=== PATIENT | male | born 1980 | race Caucasian/White ===

== ENCOUNTER → 2018-03-17 | Outpatient (CLI) | payer OTHER ==
--- NOTE | 2018-03-18 11:33 | MR ---
EXAMINATION TYPE: MR lumbar spine wo con DATE OF EXAM: 03/17/2018 COMPARISON: NONE HISTORY: Low back and lt hip/buttock pain TECHNIQUE: T1 and T2 axial and sagittal images of the lumbar spine are submitted. FINDINGS: There is no abnormal signal seen within the visualized spinal cord or paraspinal soft tissu es. At T12/L1 there is a small focal left paracentral disc protrusion. This results in mild left-sided fo raminal encroachment. At L1-2 there is no disc herniation or canal stenosis. No foraminal encroachment At L2-3 there is no disc herniation or canal stenosis. No foraminal encroachment At L3-4 there is no disc herniation or canal stenosis. No foraminal encroachment At L4-5 there is no disc herniation or canal stenosis. No foraminal encroachment. At L5-S1 there is disc desiccation. There is a broad-based left paracentral and lateral disc herniati on encroaches upon the left exiting nerve root. IMPRESSION: 1. At L5-S1 there is disc desiccation. There is a broad-based left paracentral and lateral disc herni ation encroaches upon the left exiting nerve root. 2. Left paracentral disc small protrusion T12-L1 with mild left-sided foraminal encroachment.
== END | disposition home or self-care (01) ==
LOC: RADMRIMAIN 21:37
PROVIDERS: ATTEND Specialist
DX: M51.25 Other intervertebral disc displacement, thoracolumbar region (principal)
CPT/HCPCS: 72148

== ENCOUNTER 2020-05-03 07:48 | Inpatient (IN) | payer OTHER ==
[2020-05-03] MEDS ORDERED: SODIUM CHLORIDE 0.9% 1,000 ML IV STA (07:56)
[2020-05-03 07:57] VITALS: RESP 18
[2020-05-03 08:13] LABS: Basophils # (A) 0.1 k/uL (0-0.2); Basophils % (A) 1 %; Eosinophils # (A) 0.1 k/uL (0-0.7); Eosinophils % (A) 1 %; HCT 51.2 % (39.0-53.0); Lymphocytes % (A) 20 %; MCH 31.4 pg (25.0-35.0); MCHC 33.2 g/dL (31.0-37.0); MCV 94.6 fL (80.0-100.0); Mean Platelet Volume 7.3; Monocytes # (A) 0.4 k/uL (0-1.0); Monocytes % (A) 4 %; Neutrophils % (A) 73 %; Platelet Count 303 k/uL (150-450); RBC 5.41 m/uL (4.30-5.90); WBC 9.6 k/uL (3.8-10.6)
[2020-05-03 08:25] LABS: INR 1.2 (<1.2); Prothrombin Time 11.9 sec (9.0-12.0)
--- NOTE | 2020-05-03 08:27 | ED ---
General Adult HPI - General Chief complaint: Arrhythmia/Palpitations Stated complaint: Bradycardia Time Seen by Provider: 05/03/20 07:48 Source: patient, EMS, RN notes reviewed, old records reviewed Mode of arrival: EMS Limitations: no limitations - History of Present Illness Initial comments: This is a 39-year-old male who presents emergency Department stating he woke up this morning at 3:00 and was having vomiting and diarrhea. Patient states he wa s also very lightheaded so he called EMS. When EMS arrived the paginator get a rhythm strip and it showed that the patient heart rate 30. Patient was given atropine his heart rate went up into the 70s. Patient states currently he is only mildly nauseous and somewhat thirsty. Patient denies any abdominal pain patient denies any chest pain patient denies any palpitations. Patient states he does use marijuana quite often and occasionally does methamphetamines. Patient denies any recent fever chills states she has chronic cough from smoking. Patient states he has a brother who did of heart disease but he doesn't know exactly what kind of heart disease.. Patient is a poor historian. - Related Data Home Medications Medication Instructions Recorded Confirmed Albuterol Inhaler [Ventolin Hfa 2 puff INHALATION RT-QID PRN 05/03/20 05/03/20 Inhaler] Hydrocodone/Acetaminophen [[place] 1 tab PO ONCE 05/03/20 05/03/20 10-325] Allergies Allergy/AdvReac Type Severity Reaction Status Date / Time No Known Allergies Allergy Verified 05/03/20 08:58 Review of Systems ROS Statement: Those systems with pertinent positive or pertinent negative responses have been documented in the HPI. ROS Other: All systems not noted in ROS Statement are negative. Past Medical History Past Medical History: Asthma History of Any Multi-Drug Resistant Organisms: Unobtainable Past Surgical History: No Surgical Hx Reported Past Psychological History: Bipolar Smoking Status: Current every day smoker Past Alcohol Use History: Occasional Past Drug Use History: Marijuana General Exam - General Exam Comments Initial Comments: GENERAL: Patient is well-developed and well-nourished. Patient is nontoxic and well- hydrated and is in mild distress. ENT: Neck is soft and supple. No significant lymphadenopathy is noted. Oropharynx is clear. Moist mucous membranes. Neck has full range of motion without eliciting any pain. EYES: The sclera were anicteric and conjunctiva were pink and moist. Extraocular movements were intact and pupils were equal round and reactive to light. Eyelids were unremarkable. PULMONARY: Unlabored respirations. Good breath sounds bilaterally. No audible rales rhonchi or wheezing was noted. CARDIOVASCULAR: There is a regular rate and rhythm without any murmurs gallops or rubs. ABDOMEN: Soft and nontender with normal bowel sounds. SKIN: Skin is clear with no lesions or rashes and otherwise unremarkable. NEUROLOGIC: Patient is alert and oriented x3. Cranial nerves II through XII are grossly intact. Motor and sensory are also intact. Normal speech, volume and content. Symmetrical smile. MUSCULOSKELETAL: Normal extremities with adequate strength and full range of motion. LYMPHATICS: No significant lymphadenopathy is noted PSYCHIATRIC: Mildly anxious Limitations: no limitations Course Vital Signs 05/03/20 05/03/20 07:50 09:52 Pulse Rate 103 H 50 L Respiratory 18 18 Rate Blood Pressure 132/82 155/87 O2 Sat by Pulse 100 100 Oximetry Medical Decision Making - Medical Decision Making EKG shows normal sinus rhythm at 90 bpm MN interval 130 QRS is 94 QT interval 32 QTC is 47. Patient's has QT prolongation. I compared this EKG to an old EKG aside from the QT prolongation EKG shows no Chest x-ray showed no acute abnormality. I spoke with Dr. Crowder agreed to admit the patient admitted the patient wrote admitting orders. - Lab Data Result diagrams: 05/03/20 08:03 05/03/20 08:03 Lab Results 05/03/20 05/03/20 05/03/20 Range/Units 08:03 08:03 08:03 WBC 9.6 (3.8-10.6) k/uL RBC 5.41 (4.30-5.90) m/uL Hgb 17.0 (13.0-17.5) gm/dL Hct 51.2 (39.0-53.0) % MCV 94.6 (80.0-100.0) fL MCH 31.4 (25.0-35.0) pg MCHC 33.2 (31.0-37.0) g/dL RDW 13.0 (11.5-15.5) % Plt Count 303 (150-450) k/uL Neutrophils % 73 % Lymphocytes % 20 % Monocytes % 4 % Eosinophils % 1 % Basophils % 1 % Neutrophils # 7.0 (1.3-7.7) k/uL Lymphocytes # 2.0 (1.0-4.8) k/uL Monocytes # 0.4 (0-1.0) k/uL Eosinophils # 0.1 (0-0.7) k/uL Basophils # 0.1 (0-0.2) k/uL PT 11.9 (9.0-12.0) sec INR 1.2 H (<1.2) APTT 23.0 (22.0-30.0) sec Sodium 142 (137-145) mmol/L Potassium 4.1 (3.5-5.1) mmol/L Chloride 108 H (98-107) mmol/L Carbon Dioxide 22 (22-30) mmol/L Anion Gap 12 mmol/L BUN 14 (9-20) mg/dL Creatinine 1.11 (0.66-1.25) mg/dL Est GFR (CKD-EPI)AfAm >90 (>60 ml/min/1.73 sqM) Est GFR (CKD-EPI)NonAf 85 (>60 ml/min/1.73 sqM) Glucose 116 H (74-99) mg/dL Calcium 10.3 H (8.4-10.2) mg/dL Magnesium 2.0 (1.6-2.3) mg/dL Total Bilirubin 1.2 (0.2-1.3) mg/dL AST 22 (17-59) U/L ALT 13 (4-49) U/L Alkaline Phosphatase 86 (38-126) U/L Troponin I (0.000-0.034) ng/mL Total Protein 7.9 (6.3-8.2) g/dL Albumin 4.9 (3.5-5.0) g/dL Urine Opiates Screen (NotDetected) Ur Oxycodone Screen (NotDetected) Urine Methadone Screen (NotDetected) Ur Propoxyphene Screen (NotDetected) Ur Barbiturates Screen (NotDetected) U Tricyclic Antidepress (NotDetected) Ur Phencyclidine Scrn (NotDetected) Ur Amphetamines Screen (NotDetected) U Methamphetamines Scrn (NotDetected) U Benzodiazepines Scrn (NotDetected) Urine Cocaine Screen (NotDetected) U Marijuana (THC) Screen (NotDetected) 05/03/20 05/03/20 Range/Units 08:03 09:21 WBC (3.8-10.6) k/uL RBC (4.30-5.90) m/uL Hgb (13.0-17.5) gm/dL Hct (39.0-53.0) % MCV (80.0-100.0) fL MCH (25.0-35.0) pg MCHC (31.0-37.0) g/dL RDW (11.5-15.5) % Plt Count (150-450) k/uL Neutrophils % % Lymphocytes % % Monocytes % % Eosinophils % % Basophils % % Neutrophils # (1.3-7.7) k/uL Lymphocytes # (1.0-4.8) k/uL Monocytes # (0-1.0) k/uL Eosinophils # (0-0.7) k/uL Basophils # (0-0.2) k/uL PT (9.0-12.0) sec INR (<1.2) APTT (22.0-30.0) sec Sodium (137-145) mmol/L Potassium (3.5-5.1) mmol/L Chloride (98-107) mmol/L Carbon Dioxide (22-30) mmol/L Anion Gap mmol/L BUN (9-20) mg/dL Creatinine (0.66-1.25) mg/dL Est GFR (CKD-EPI)AfAm (>60 ml/min/1.73 sqM) Est GFR (CKD-EPI)NonAf (>60 ml/min/1.73 sqM) Glucose (74-99) mg/dL Calcium (8.4-10.2) mg/dL Magnesium (1.6-2.3) mg/dL Total Bilirubin (0.2-1.3) mg/dL AST (17-59) U/L ALT (4-49) U/L Alkaline Phosphatase (38-126) U/L Troponin I <0.012 (0.000-0.034) ng/mL Total Protein (6.3-8.2) g/dL Albumin (3.5-5.0) g/dL Urine Opiates Screen Detected H (NotDetected) Ur Oxycodone Screen Not Detected (NotDetected) Urine Methadone Screen Not Detected (NotDetected) Ur Propoxyphene Screen Not Detected (NotDetected) Ur Barbiturates Screen Not Detected (NotDetected) U Tricyclic Antidepress Not Detected (NotDetected) Ur Phencyclidine Scrn Not Detected (NotDetected) Ur Amphetamines Screen Not Detected (NotDetected) U Methamphetamines Scrn Detected H (NotDetected) U Benzodiazepines Scrn Not Detected (NotDetected) Urine Cocaine Screen Detected H (NotDetected) U Marijuana (THC) Screen Detected H (NotDetected) Disposition Clinical Impression: Polysubstance abuse, Near syncope, Bradycardia, Vomiting Disposition: ADMITTED IP TO THIS HOSP Referrals: None,Stated [Primary Care Provider] - 1-2 days Time of Disposition: 10:18
[2020-05-03 08:45] LABS: ALT 13 U/L (4-49); AST 22 U/L (17-59); African American GFR (CKD) >90 (>60 ml/min/1.73 sqM); Albumin 4.9 g/dL (3.5-5.0); Alkaline Phosphatase 86 U/L (38-126); Anion Gap 12 mmol/L; Blood Urea Nitrogen 14 mg/dL (9-20); Calcium 10.3 mg/dL (8.4-10.2); Carbon Dioxide 22 mmol/L (22-30); Chloride 108 mmol/L (98-107); Glucose 116 mg/dL (74-99); Non-African American GFR(CKD) 85 (>60 ml/min/1.73 sqM); Potassium 4.1 mmol/L (3.5-5.1); Sodium 142 mmol/L (137-145); Total Bilirubin 1.2 mg/dL (0.2-1.3); Total Protein 7.9 g/dL (6.3-8.2)
[2020-05-03] MEDS ORDERED: LORazepam 2 MG/ML INJ IV STA (08:54)
--- NOTE | 2020-05-03 09:09 | XR ---
EXAMINATION TYPE: XR chest 2V DATE OF EXAM: 05/03/2020 COMPARISON: NONE HISTORY: Chest pain, dyspnea TECHNIQUE: Frontal and lateral views of the chest are obtained. FINDINGS: There is no focal air space opacity, pleural effusion, or pneumothorax seen. The cardiac silhouette size is within normal limits. There are overlying cardiac leads. Suspect artifacts on the lateral exam are also present. The osseous structures are intact. IMPRESSION: No acute cardiopulmonary process.
[2020-05-03 10:08] LABS: Phencyclidine Screen,Urine Not Detected (NotDetected); Urn Cannabinoid Scrn Detected (NotDetected)
[2020-05-03 10:09] LABS: Amphetamine Screen,Urine Not Detected (NotDetected); Barbiturate Screen,Urine Not Detected (NotDetected); Benzodiazepines Screen,Urine Not Detected (NotDetected); Cocaine Screen,Urine Detected (NotDetected); Methadone Screen, Urine Not Detected (NotDetected); Opiate Screen,Urine Detected (NotDetected); Oxycodone Screen, Urine Not Detected (NotDetected); Tricyclic Antidepressant,Urine Not Detected (NotDetected)
[2020-05-03] MEDS ORDERED: NITROGLYCERIN SL TABS 0.4 MG TAB SUBLINGUAL PRN (10:19)
[2020-05-03] MEDS ORDERED: METOCLOPRAMIDE 5 MG/ML 2 ML VIAL IVP STA (12:50)
[2020-05-03] MEDS ORDERED: ACETAMINOPHEN TAB 325 MG TAB PO STA (12:52)
[2020-05-03 12:59] VITALS: BP 103/71; PULSE 60
[2020-05-03] MEDS ORDERED: NICOTINE 21MG/24HR PATCH TRANSDERM STA (16:14)
[2020-05-03] MEDS ORDERED: SODIUM CHLORIDE 0.9% 1,000 ML IV SCH (16:30)
[2020-05-03] MEDS ORDERED: HYDROCORTISONE SUPPOSITORY 25 MG SUPP RECTAL SCH (20:00)
--- NOTE | 2020-05-03 21:35 | P.HPIM ---
History of Present Illness H&P Date: 05/03/20 Chief Complaint: Nausea Patient is a 39-year-old male with a known history of asthma, currently everyday smoker, chronic back pain and history of chronic dislocation/pain of left sternoclavicular joint, polysubstance abuse presents to ER due to complaints of nausea vomiting and diarrhea. Patient felt very lightheaded and called EMS. When the EMS arrived and get a rhythm strip and it showed patient's heart rate at 30. Patient was given atropine and his heart rate went up to 70s. Patient otherwise denied any complaints of chest pain or shortness of breath. No palpitations. Patient states that he does use marijuana and methamphetamines and cocaine. Denied any fever or chills. No headache or dizziness. No cough or sputum production. Patient states that he does have hemorrhoids and is causing pain. Denies any bleeding from the hemorrhoids. No history of prior hemorrhoid surgery. Chest x-ray showed no acute cardiopulmonary process EKG showed sinus bradycardia with heart rate 40 Laboratory data showed calcium 10.3, BUN 49 creatinine 1.1 Troponin x3 - Derangements are not elevated Magnesium 2.0 UDS is positive for opiates, amphetamines, cocaine and marijuana. Review of Systems Constitutional: Patient denies any fever or chills . No generalized weakness or weight loss. Abdomen: Patient does have nausea. no vomiting and diarrhea and abdominal pain. Cardiovascular: Patient denies any chest pain or short of breath no palp itations. Respiratory: patient denied any cough or sputum production. No shortness of breath Neurologic: Patient denied any numbness or tingling headache. Musculoskeletal: Patient denies any complaints of joint swelling or deformity. Skin: Negative Psychiatric: Negative Endocrine: No heat or cold intolerance. No recent weight gain. Genitourinary: No dysuria or hematuria. All other 14 point ROS negative except the above Past Medical History Past Medical History: Asthma, Pneumonia Additional Past Medical History / Comment(s): Chronic dislocation/pain L sternoclavicular joint, chronic back pain. History of Any Multi-Drug Resistant Organisms: None Reported Past Surgical History: No Surgical Hx Reported Past Anesthesia/Blood Transfusion Reactions: Unable to Obtain Additional Past Anesthesia/Blood Transfusion Reaction / Comment(s): Pt states he has never had surgery. Smoking Status: Current every day smoker - Past Family History Father Additional Family Medical History / Comment(s): ETOH abuse Mother History Unknown: Yes Additional Family Medical History / Comment(s): Pt does not know mother' medical history. Medications and Allergies Home Medications Medication Instructions Recorded Confirmed Type Albuterol Inhaler [Ventolin Hfa 2 puff INHALATION RT-QID PRN 05/03/20 05/03/20 History Inhaler] Hydrocodone/Acetaminophen [[place] 1 tab PO ONCE 05/03/20 05/03/20 History 10-325] Allergies Allergy/AdvReac Type Severity Reaction Status Date / Time No Known Allergies Allergy Verified 05/03/20 08:58 Physical Exam Vitals: Vital Signs Pulse Resp BP Pulse Ox 05/03/20 12:58 60 18 103/71 10 L 05/03/20 09:52 50 L 18 155/87 100 05/03/20 07:50 103 H 18 132/82 100 Intake and Output 05/03/20 05/03/20 05/03/20 06:59 14:59 22:59 Other: Weight 72.575 kg PHYSICAL EXAMINATION: Patient is lying in the bed comfortably, no acute distress, awake alert and oriented.. HEENT: Normocephalic. Neck is supple. Pupils reactive. Nostrils clear. Oral cavity is moist. Ears reveal no drainage. Neck reveals no JVD, carotid bruits, or thyromegaly. CHEST EXAMINATION: Trachea is central. Symmetrical expansion. Lung montelongo clear to auscultation and percussion. CARDIAC: Normal S1, S2 with no gallops. No murmurs ABDOMEN: Soft. Bowel sounds normal. No organomegaly. No abdominal bruits. Patient does have external hemorrhoids without bleeding as per rectal exam. Extremities: reveal no edema. No clubbing or cyanosis Neurologically awake, alert, oriented x3 with well-coordinated movements. No focal deficits noted Skin: No rash or skin lesions. Psychiatric: Coperative. Nonsuicidal Musculoskeletal: No joint swelling or deformity. Normal range of motion. Results CBC & Chem 7: 05/03/20 08:03 05/03/20 08:03 Labs: Abnormal Lab Results - Last 24 Hours (Table) 05/03/20 05/03/20 05/03/20 Range/Units 08:03 08:03 09:21 INR 1.2 H (<1.2) Chloride 108 H (98-107) mmol/L Glucose 116 H (74-99) mg/dL Calcium 10.3 H (8.4-10.2) mg/dL Urine Opiates Screen Detected H (NotDetected) U Methamphetamines Scrn Detected H (NotDetected) Urine Cocaine Screen Detected H (NotDetected) U Marijuana (THC) Screen Detected H (NotDetected) Thrombosis Risk Factor Assmnt - DVT/VTE Prophylaxis DVT/VTE Prophylaxis: Pharmacologic Prophylaxis ordered - Choose All That Apply Any of the Below Risk Factors Present?: No Other Risk Factors: No Other congenital or acquired thrombophilia - If yes, enter type in comment: No Thrombosis Risk Factor Assessment Level: Very Low Risk Assessment and Plan Assessment: Sinus bradycardia likely due to cocaine and other polysubstance use. Mild hypercalcemia secondary to dehydration. UDS is positive for opiates, methamphetamines and cocaine and marijuana Polysubstance abuse Asthma stable Ongoing nicotine addiction External hemorrhoids DVT prophylaxis with heparin subcu Plan: Patient will be continued on IV hydration and continue with telemetry monitoring. Serial troponin x3 -. Cardiology was consulted for evaluation due to bradycardia. Patient is currently lying in the bed comfortably. Anuselin law for hemorrhoids. Continue to monitor for any withdrawal symptoms. Further recommendations based on the clinical course.
[2020-05-04] MEDS ORDERED: ASPIRIN 325 MG TAB PO SCH (09:00)
== END 2020-05-03 17:55 | disposition left against medical advice (07) | DRG 310 ==
LOC: EC 07:48 → 3SCARD 10:19
PROVIDERS: ADMIT Internal Medicine; ATTEND Internal Medicine
DX: R00.1 Bradycardia, unspecified (principal); F14.10 Cocaine abuse, uncomplicated; F12.10 Cannabis abuse, uncomplicated; R11.2 Nausea with vomiting, unspecified; G89.29 Other chronic pain; J45.909 Unspecified asthma, uncomplicated; F17.210 Nicotine dependence, cigarettes, uncomplicated; S43.205 Unspecified dislocation of left sternoclavicular joint; K64.4 Residual hemorrhoidal skin tags; E83.52 Hypercalcemia; E86.0 Dehydration; M54.9 Dorsalgia, unspecified; R19.7 Diarrhea, unspecified; R94.31 Abnormal electrocardiogram [ECG] [EKG]; X58.XXXD Exposure to other specified factors, subsequent encounter; Z79.891 Long term (current) use of opiate analgesic; Z87.01 Personal history of pneumonia (recurrent); Z81.1 Family history of alcohol abuse and dependence
CPT/HCPCS: 36415; 71046; 80053; 80306; 83735; 84484; 85025; 85610; 85730; 93005; 96361; 96374; 96375; 99285

== ENCOUNTER 2020-05-04 16:21 | Observation (INO) | payer OTHER ==
[2020-05-04] MEDS ORDERED: IPRATROPIUM-ALBUTEROL 3 ML NEB INHALATION STA (16:51)
[2020-05-04] MEDS ORDERED: SODIUM CHLORIDE 0.9% 1,000 ML IV STA ×2 (16:51→18:27)
--- NOTE | 2020-05-04 16:52 | ED ---
Recheck HPI - General Chief Complaint: Shortness of Breath Stated Complaint: jane,sob Time Seen by Provider: 05/04/20 16:34 Source: patient, RN notes reviewed, old records reviewed Mode of arrival: EMS Limitations: no limitations - History of Present Illness Initial Comments: this is a 39-year-old male DF for evaluation patient is low heart rate seen in the ER signed out AMA returns today for not feeling well. Patient concerned of covert states he feels weak fevers chills numbness and tingling of upper extremities. Weakness today at work. Denies any PCO currently or drug use. No pain did have injured did take some Gem prior to going to work MD Complaint: other (not feeling well) -: days(s) Returns Today for: persistent/worsening pain related to initial visit Symptoms Since Prior Visit: worsening pain Associated Symptoms: chills, shortness of breath, malaise, nausea Treatments Prior to Arrival: Given Pain Meds on - Related Data Home Medications Medication Instructions Recorded Confirmed Albuterol Inhaler [Ventolin Hfa 2 puff INHALATION RT-QID PRN 05/03/20 05/04/20 Inhaler] Allergies Allergy/AdvReac Type Severity Reaction Status Date / Time No Known Allergies Allergy Verified 05/04/20 18:07 Review of Systems ROS Statement: Those systems with pertinent positive or pertinent negative responses have been documented in the HPI. ROS Other: All systems not noted in ROS Statement are negative. Past Medical History Past Medical History: Asthma, Pneumonia Additional Past Medical History / Comment(s): Chronic dislocation/pain L sternoclavicular joint, chronic back pain. History of Any Multi-Drug Resistant Organisms: None Reported Past Surgical History: No Surgical Hx Reported Past Anesthesia/Blood Transfusion Reactions: Unable to Obtain Additional Past Anesthesia/Blood Transfusion Reaction / Comment(s): Pt states he has never had surgery. Past Psychological History: Bipolar Smoking Status: Current every day smoker - Past Family History Father Additional Family Medical History / Comment(s): ETOH abuse Mother History Unknown: Yes Additional Family Medical History / Comment(s): Pt does not know mother' medical history. General Exam Limitations: no limitations General appearance: alert, in no apparent distress Head exam: Present: atraumatic, normocephalic, normal inspection Eye exam: Present: normal appearance, PERRL, EOMI. Absent: scleral icterus, conjunctival injection, periorbital swelling ENT exam: Present: normal exam, mucous membranes moist Neck exam: Present: normal inspection. Absent: tenderness, meningismus, lymphadenopathy Respiratory exam: Present: normal lung sounds bilaterally. Absent: respiratory distress, wheezes, rales, rhonchi, stridor Cardiovascular Exam: Present: normal rhythm, bradycardia, normal heart sounds. Absent: systolic murmur, diastolic murmur, rubs, gallop, clicks GI/Abdominal exam: Present: soft, normal bowel sounds. Absent: distended, tenderness, guarding, rebound, rigid Extremities exam: Present: normal inspection, full ROM, normal capillary refill. Absent: tenderness, pedal edema, joint swelling, calf tenderness Back exam: Present: normal inspection Neurological exam: Present: alert, oriented X3, CN II-XII intact Psychiatric exam: Present: normal affect, normal mood Skin exam: Present: warm, dry, intact, normal color. Absent: rash Course Vital Signs 05/04/20 05/04/20 05/04/20 16:23 17:30 17:38 Temperature 98.2 F Pulse Rate 48 L 44 L 70 Respiratory 18 Rate Blood Pressure 137/101 O2 Sat by Pulse 99 Oximetry 05/04/20 05/04/20 17:51 18:31 Temperature 98.2 F 98.3 F Pulse Rate 42 L 44 L Respiratory 12 22 Rate Blood Pressure 149/100 155/100 O2 Sat by Pulse 100 100 Oximetry - Reevaluation(s) Reevaluation #1: 05/04/20 18:56 medical record is reviewed 05/04/20 18:56 inpatient admission from yesterday is reviewed Reevaluation #2: 05/04/20 18:56 patient informed results and questions answered - Consultations Consultation #1: spoke with SAROJ kay for admission Medical Decision Making - Medical Decision Making 39 male the ER for evaluationin regards to similar symptoms was earlier bradycardia weakness near syncopal occasional pain with cough. - Lab Data Result diagrams: 05/04/20 17:11 05/04/20 17:11 Lab Results 05/04/20 05/04/20 05/04/20 Range/Units 17:11 17:11 17:11 WBC 15.6 H (3.8-10.6) k/uL RBC 4.61 (4.30-5.90) m/uL Hgb 14.4 (13.0-17.5) gm/dL Hct 42.9 (39.0-53.0) % MCV 93.1 (80.0-100.0) fL MCH 31.1 (25.0-35.0) pg MCHC 33.4 (31.0-37.0) g/dL RDW 13.1 (11.5-15.5) % Plt Count 290 (150-450) k/uL Neutrophils % 71 % Lymphocytes % 22 % Monocytes % 5 % Eosinophils % 1 % Basophils % 1 % Neutrophils # 11.1 H (1.3-7.7) k/uL Lymphocytes # 3.4 (1.0-4.8) k/uL Monocytes # 0.8 (0-1.0) k/uL Eosinophils # 0.1 (0-0.7) k/uL Basophils # 0.1 (0-0.2) k/uL PT 12.5 H (9.0-12.0) sec INR 1.2 H (<1.2) APTT 20.3 L (22.0-30.0) sec Sodium 137 (137-145) mmol/L Potassium 3.7 (3.5-5.1) mmol/L Chloride 110 H (98-107) mmol/L Carbon Dioxide 17 L (22-30) mmol/L Anion Gap 10 mmol/L BUN 16 (9-20) mg/dL Creatinine 1.06 (0.66-1.25) mg/dL Est GFR (CKD-EPI)AfAm >90 (>60 ml/min/1.73 sqM) Est GFR (CKD-EPI)NonAf 90 (>60 ml/min/1.73 sqM) Glucose 104 H (74-99) mg/dL Calcium 9.2 (8.4-10.2) mg/dL Magnesium 1.7 (1.6-2.3) mg/dL Total Bilirubin 0.9 (0.2-1.3) mg/dL AST 21 (17-59) U/L ALT 11 (4-49) U/L Alkaline Phosphatase 66 (38-126) U/L Creatine Kinase 182 H (55-170) U/L Troponin I (0.000-0.034) ng/mL NT-Pro-B Natriuret Pep pg/mL Total Protein 6.7 (6.3-8.2) g/dL Albumin 4.1 (3.5-5.0) g/dL 05/04/20 05/04/20 Range/Units 17:11 17:11 WBC (3.8-10.6) k/uL RBC (4.30-5.90) m/uL Hgb (13.0-17.5) gm/dL Hct (39.0-53.0) % MCV (80.0-100.0) fL MCH (25.0-35.0) pg MCHC (31.0-37.0) g/dL RDW (11.5-15.5) % Plt Count (150-450) k/uL Neutrophils % % Lymphocytes % % Monocytes % % Eosinophils % % Basophils % % Neutrophils # (1.3-7.7) k/uL Lymphocytes # (1.0-4.8) k/uL Monocytes # (0-1.0) k/uL Eosinophils # (0-0.7) k/uL Basophils # (0-0.2) k/uL PT (9.0-12.0) sec INR (<1.2) APTT (22.0-30.0) sec Sodium (137-145) mmol/L Potassium (3.5-5.1) mmol/L Chloride (98-107) mmol/L Carbon Dioxide (22-30) mmol/L Anion Gap mmol/L BUN (9-20) mg/dL Creatinine (0.66-1.25) mg/dL Est GFR (CKD-EPI)AfAm (>60 ml/min/1.73 sqM) Est GFR (CKD-EPI)NonAf (>60 ml/min/1.73 sqM) Glucose (74-99) mg/dL Calcium (8.4-10.2) mg/dL Magnesium (1.6-2.3) mg/dL Total Bilirubin (0.2-1.3) mg/dL AST (17-59) U/L ALT (4-49) U/L Alkaline Phosphatase (38-126) U/L Creatine Kinase (55-170) U/L Troponin I <0.012 (0.000-0.034) ng/mL NT-Pro-B Natriuret Pep 101 pg/mL Total Protein (6.3-8.2) g/dL Albumin (3.5-5.0) g/dL - EKG Data -: EKG Interpreted by Me (EKG shows sinus bradycardia rate of 38 DE 128 QRS 100 QTc 356) - Radiology Data Radiology results: report reviewed (chest x-rays negative for acute disease), image reviewed Disposition Clinical Impression: Bradycardia Disposition: ADMITTED IP TO THIS [facility] Condition: Fair Is patient prescribed a controlled substance at d/c from ED?: No Referrals: None,Stated [Primary Care Provider] - 1-2 days
[2020-05-04 17:34] LABS: Basophils # (A) 0.1 k/uL (0-0.2); Basophils % (A) 1 %; Eosinophils # (A) 0.1 k/uL (0-0.7); Eosinophils % (A) 1 %; HCT 42.9 % (39.0-53.0); HGB 14.4 gm/dL (13.0-17.5); Lymphocytes # (A) 3.4 k/uL (1.0-4.8); Lymphocytes % (A) 22 %; MCH 31.1 pg (25.0-35.0); MCHC 33.4 g/dL (31.0-37.0); MCV 93.1 fL (80.0-100.0); Mean Platelet Volume 7.3; Monocytes # (A) 0.8 k/uL (0-1.0); Monocytes % (A) 5 %; Neutrophils # (A) 11.1 k/uL (1.3-7.7); Neutrophils % (A) 71 %; Platelet Count 290 k/uL (150-450); RBC 4.61 m/uL (4.30-5.90); RDW 13.1 % (11.5-15.5); WBC 15.6 k/uL (3.8-10.6)
--- NOTE | 2020-05-04 17:40 | XR ---
EXAMINATION TYPE: XR chest 2V DATE OF EXAM: 05/04/2020 COMPARISON: 05/03/2020 INDICATION: Difficulty in breathing TECHNIQUE: Frontal and lateral views of the chest are obtained. FINDINGS: The heart size is normal. The pulmonary vasculature is normal. The lungs are clear. IMPRESSION: 1. No acute pulmonary process.
[2020-05-04 17:44] LABS: ALT 11 U/L (4-49); AST 21 U/L (17-59); African American GFR (CKD) >90 (>60 ml/min/1.73 sqM); Albumin 4.1 g/dL (3.5-5.0); Alkaline Phosphatase 66 U/L (38-126); Anion Gap 10 mmol/L; Blood Urea Nitrogen 16 mg/dL (9-20); Calcium 9.2 mg/dL (8.4-10.2); Carbon Dioxide 17 mmol/L (22-30); Chloride 110 mmol/L (98-107); Creatine Kinase 182 U/L (55-170); Glucose 104 mg/dL (74-99); Magnesium 1.7 mg/dL (1.6-2.3); Non-African American GFR(CKD) 90 (>60 ml/min/1.73 sqM); Potassium 3.7 mmol/L (3.5-5.1); Sodium 137 mmol/L (137-145); Total Bilirubin 0.9 mg/dL (0.2-1.3); Total Protein 6.7 g/dL (6.3-8.2)
[2020-05-04 18:02] LABS: INR 1.2 (<1.2); Partial Thromboplastin Time 20.3 sec (22.0-30.0); Prothrombin Time 12.5 sec (9.0-12.0)
[2020-05-04] MEDS ORDERED: SODIUM CHLORIDE 0.9% 500 ML 500 ML IV STA (18:27)
[2020-05-04] MEDS ORDERED: LORazepam 2 MG/ML INJ IV STA (18:41)
[2020-05-04] MEDS ORDERED: ASPIRIN 81 MG PO STA (18:53)
[2020-05-04 19:24] LABS: C Reactive Protein <5.0 mg/L (<10.0)
[2020-05-04] MEDS: SODIUM CHLORIDE 0.9% 1,000 ML IV SCH (21:13)
[2020-05-04] MEDS: ONDANSETRON 4 MG/2 ML VIAL IVP PRN (22:18)
[2020-05-05 02:56] LABS: Cholesterol 156 mg/dL (<200); HDL Cholesterol 49 mg/dL (40-60); LDL Cholesterol,Calculated 69 mg/dL (0-99); Triglycerides 188 mg/dL (<150)
[2020-05-05] MEDS: LORazepam 2 MG/ML INJ IV PRN ×2 (03:02→08:56)
[2020-05-05] MEDS: ONDANSETRON 4 MG/2 ML VIAL IVP PRN (03:15)
[2020-05-05] MEDS: SODIUM CHLORIDE 0.9% 1,000 ML IV SCH ×2 (05:58→10:09)
[2020-05-05] MEDS ORDERED: polyethylene glycoL 3350 17 GM POWD.PACK PO STA (08:02)
[2020-05-05] MEDS ORDERED: HYDROCORTISONE SUPPOSITORY 25 MG SUPP RECTAL STA (08:02)
[2020-05-05] MEDS ORDERED: IPRATROPIUM-ALBUTEROL 3 ML NEB INHALATION STA (08:03)
[2020-05-05 08:41] VITALS: BP 125/83; RESP 16; TEMP 98.2
[2020-05-05] MEDS ORDERED: ASPIRIN 325 MG TAB PO SCH (09:00)
--- NOTE | 2020-05-05 09:27 | P.CRDCN ---
History of Present Illness History of present illness: HISTORY OF PRESENTING ILLNESS This is a pleasant 39-year-old male past medical history significant for smoker, chronic nicotine dependence, illicit drug use and bipolar disorder. 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 We have been asked to see in consultation for bradycardia. He presented to the ER with complaints of abdominal pain, constipation, nausea, vomiting and painful hemorrhoids. He states this has been going on for the past couple days intermittently. He has not really eaten much due to the nausea. He initially came to ER 05/03 and left AMA because he was feeling better. However, yesterday after eating sloppy shyam sandwich he again had abdominal pain, nausea and vomiting. EKG on arrival revealed sinus bradycardia with a heart rate of 38. He has had no symptoms of dizziness, syncope, chest pain, palpitations or shortness of breath. He is somewhat edgy and aggressive this morning complaining he is getting no care or medication to help him. Chest xray negative for an acute cardiopulmonary process. Laboratory data reviewed, WBC 15.6, hemoglobin 14.4, platelets 290, INR 1.2, sodium 137, potassium 3.7, creatinine 1.06, magnesium 1.7, cardiac enzymes negative 3, TSH 1.49, LDL 69, HDL 49 and urine drug screen from May 03 reveals positive for opiates, methamphetamine, cocaine and marijuana. REVIEW OF SYSTEMS At the time of my exam: CONSTITUTIONAL: Denies fever or chills. CARDIOVASCULAR: Denies chest pain, shortness of breath, orthopnea, PND or palpitations. RESPIRATORY: Denies cough. GASTROINTESTINAL: Complains of abdominal pain, constipation, nausea and vomiting. Denies diarrhea. MUSCULOSKELETAL: Denies myalgias. NEUROLOGIC: Denies numbness, tingling or weakness. ENDOCRINE: Denies fatigue, weight change, polydipsia or polyurina. GENITOURINARY: Denies burning, hematuria or urgency with micturation. HEMATOLOGIC: Denies history of anemia or bleeding. PHYSICAL EXAMINATION Blood pressure 125/83 heart rate 52 afebrile and maintaining oxygen saturation on room air. CONSTITUTIONAL: No apparent distress. HEENT: Head is normocephalic. Pupils are equal, round. Sclerae anicteric. Mucous membranes of the mouth are moist. No JVD. No carotid bruit. CHEST EXAMINATION: Expiratory wheezes bilaterally. No chest wall tenderness is noted on palpation or with deep breathing. HEART EXAMINATION: Regular rate and rhythm. S1, S2 heard. No murmurs, gallops or rub. ABDOMEN: Soft, nontender. Positive bowel sounds. EXTREMITIES: 2+ peripheral pulses, no lower extremity edema and no calf tenderness. NEUROLOGIC EXAMINATION: Patient is awake, alert and oriented x3. ASSESSMENT Sinus bradycardia Abdominal pain, nausea, vomiting and constipation Leukocytosis Asthma Chronic nicotine dependence Poly-substance illicit drug abuse PLAN Concerning the sinus bradycardia, he is asymptomatic. There is no electrolyte abnormalities and he is euthyroid. Possibly related to persistent abdominal issues. We recommend he gets up and ambulates and we will watch on telemetry for chronotropic response. Ongoing medical management and evaluation of abdominal pain, nausea and constipation. We will give one time dose of miralax, breathing treatment and annusol. Thank you kindly for this consultation. Nurse Practitioner note has been reviewed, I agree with a documented findings and plan of care. Patient was seen and examined. Past Medical History Past Medical History: Asthma, Pneumonia Additional Past Medical History / Comment(s): Chronic dislocation/pain L sternoclavicular joint, chronic back pain. History of Any Multi-Drug Resistant Organisms: None Reported Past Surgical History: No Surgical Hx Reported Past Anesthesia/Blood Transfusion Reactions: Unable to Obtain Additional Past Anesthesia/Blood Transfusion Reaction / Comment(s): Pt states he has never had surgery. Past Psychological History: Bipolar Additional Psychological History / Comment(s): Pt resides with his mother Smoking Status: Current every day smoker Past Alcohol Use History: Occasional Additional Past Alcohol Use History / Comment(s): Pt started smoking in 1996 and is a ppd smoker. Past Drug Use History: Cocaine, Marijuana, Methamphetamine Additional Drug Use History / Comment(s): Pt states he uses marijuana, meth and cocaine occasionally. 05/03/20 UDS + for opiates, meth, cocain, marijuana - Past Family History Father Additional Family Medical History / Comment(s): ETOH abuse Mother History Unknown: Yes Additional Family Medical History / Comment(s): Pt does not know mother' medical history. Medications and Allergies Home Medications Medication Instructions Recorded Confirmed Type Albuterol Inhaler [Ventolin Hfa 2 puff INHALATION RT-QID PRN 05/03/20 05/04/20 History Inhaler] Allergies Allergy/AdvReac Type Severity Reaction Status Date / Time No Known Allergies Allergy Verified 05/04/20 18:07 Physical Exam Vitals: Vital Signs Temp Pulse Pulse Resp BP BP Pulse Ox 05/05/20 07:37 98.2 F 52 L 16 125/83 98 05/05/20 03:32 66 05/05/20 03:00 98.1 F 40 L 18 164/88 97 05/04/20 20:43 98.3 F 76 18 108/63 97 05/04/20 20:01 98.3 F 80 19 125/58 100 05/04/20 19:20 74 19 138/85 100 05/04/20 19:00 98.2 F 44 L 18 144/86 100 05/04/20 18:31 98.3 F 44 L 22 155/100 100 05/04/20 17:51 98.2 F 42 L 12 149/100 100 05/04/20 17:38 70 05/04/20 17:30 44 L 05/04/20 16:23 98.2 F 48 L 18 137/101 99 Intake and Output 05/04/20 05/05/20 05/05/20 22:59 06:59 14:59 Other: Voiding Method Toilet Toilet # Voids 1 1 Weight 73.482 kg Results 05/04/20 17:11 05/04/20 17:11 Cardiac Enzymes 05/04/20 05/04/20 05/04/20 Range/Units 17:11 17:11 19:38 AST 21 (17-59) U/L Troponin I <0.012 <0.012 (0.000-0.034) ng/mL 05/04/20 Range/Units 23:10 AST (17-59) U/L Troponin I <0.012 (0.000-0.034) ng/mL Coagulation 05/04/20 Range/Units 17:11 PT 12.5 H (9.0-12.0) sec APTT 20.3 L (22.0-30.0) sec Lipids 05/04/20 Range/Units 17:11 Triglycerides 188 H (<150) mg/dL Cholesterol 156 (<200) mg/dL HDL Cholesterol 49 (40-60) mg/dL CBC 05/04/20 Range/Units 17:11 WBC 15.6 H (3.8-10.6) k/uL RBC 4.61 (4.30-5.90) m/uL Hgb 14.4 (13.0-17.5) gm/dL Hct 42.9 (39.0-53.0) % Plt Count 290 (150-450) k/uL Comprehensive Metabolic Panel 05/04/20 Range/Units 17:11 Sodium 137 (137-145) mmol/L Potassium 3.7 (3.5-5.1) mmol/L Chloride 110 H (98-107) mmol/L Carbon Dioxide 17 L (22-30) mmol/L BUN 16 (9-20) mg/dL Creatinine 1.06 (0.66-1.25) mg/dL Glucose 104 H (74-99) mg/dL Calcium 9.2 (8.4-10.2) mg/dL AST 21 (17-59) U/L ALT 11 (4-49) U/L Alkaline Phosphatase 66 (38-126) U/L Total Protein 6.7 (6.3-8.2) g/dL Albumin 4.1 (3.5-5.0) g/dL Current Medications Generic Name Dose Route Start Last Admin Trade Name Freq PRN Reason Stop Dose Admin Aspirin 325 mg 05/05/20 09:00 05/05/20 08:57 Aspirin 325 Mg Tab PO 325 mg DAILY BERNARD Administration Sodium Chloride 1,000 mls @ 100 mls/hr 05/04/20 19:00 05/05/20 05:58 Saline 0.9% IV Not Given .Q10H BERNARD Lorazepam 1 mg 05/04/20 18:41 05/05/20 08:56 Lorazepam 2 Mg/Ml Inj IV 1 mg Q4HR PRN Administration Anxiety Ondansetron HCl 4 mg 05/04/20 22:12 05/05/20 03:15 Ondansetron 4 Mg/2 Ml Vial IVP 4 mg Q6HR PRN Administration Nausea And Vomiting Intake and Output 05/04/20 05/05/20 05/05/20 22:59 06:59 14:59 Other: Voiding Method Toilet Toilet # Voids 1 1 Weight 73.482 kg 05/04/20 17:11 05/04/20 17:11
[2020-05-05 10:12] VITALS: PULSE 67
--- NOTE | 2020-05-05 12:21 | ECHOF ---
Referral Reason:jane MEASUREMENTS -------- HEIGHT: 170.2 cm WEIGHT: 73.5 kg BP: 164/88 RVIDd: 3.1 cm (< 3.3) IVSd: 1.0 cm (0.6 - 1.1) LVIDd: 4.9 cm (3.9 - 5.3) LVPWd: 1.2 cm (0.6 - 1.1) IVSs: 1.4 cm LVIDs: 3.1 cm LVPWs: 1.8 cm LAESV Index (A-L): 19.99 ml/m Ao Diam: 2.3 cm (2.0 - 3.7) AV Cusp: 1.6 cm (1.5 - 2.6) MV EXCURSION: 22.955 mm (> 18.000) MV EF SLOPE: 154 mm/s (70 - 150) EPSS: 0.6 cm MV E José Miguel: 0.71 m/s MV DecT: 164 ms MV A José Miguel: 1.05 m/s MV E/A Ratio: 0.68 FINDINGS -------- Resting bradycardia (HR<60bpm). This was a technically adequate study. The left ventricular size is normal. Left ventricular wall thickness is normal. Overall left vent ricular systolic function is normal with, an EF between 55 - 60 %. The diastolic filling pattern is normal for the age of the patient {E/E'}. The right ventricle is normal in size. Normal LA size by volume 22+/-6 ml/m2. The right atrial size is normal. Interatrial and interventricular septum intact. The aortic valve is trileaflet and appears structurally normal. There is mild aortic valve sclerosi s. There is no evidence of aortic regurgitation. There is no evidence of aortic stenosis. Mild mitral regurgitation is present. Trace tricuspid regurgitation present. There is no evidence of pulmonary hypertension. The right ventricular systolic pressure, as measured by Doppler, is {RVSP}. There is no pulmonic regurgitation present. The aortic root size is normal. IVC Not well visulized. There is no pericardial effusion. CONCLUSIONS -------- 1. The left ventricular size is normal. 2. Left ventricular wall thickness is normal. 3. Overall left ventricular systolic function is normal with, an EF between 55 - 60 %. 4. There is mild aortic valve sclerosis. 5. Mild mitral regurgitation is present. 6. Trace tricuspid regurgitation present. RAILROAD OPERATOR: Lily Gilmore RDCS
--- NOTE | 2020-05-06 21:43 | HP ---
HISTORY AND PHYSICAL COMBINED HISTORY AND PHYSICAL AND DISCHARGE SUMMARY: CHIEF COMPLAINT: Bradycardia. HISTORY OF PRESENT ILLNESS: This 39-year-old gentleman was admitted with bradycardia, abdominal pain, nausea, vomiting. He was treated symptomatically. The patient left the hospital AGAINST MEDICAL ADVICE before being seen. Please refer to the multiple progress notes ER notes, staff notes and consultation notes for further details. FINAL DIAGNOSES: 1. Sinus bradycardia. 2. Abdominal pain, nausea, vomiting, constipation of undetermined etiology. MMODL / IJN: [id number] /
== END 2020-05-05 14:29 | disposition left against medical advice (07) ==
LOC: EC 16:21 → 3NCARDOBS 18:54
PROVIDERS: ADMIT Hospitalist; ATTEND Hospitalist
DX: R00.1 Bradycardia, unspecified (principal); D72.829 Elevated white blood cell count, unspecified; F12.90 Cannabis use, unspecified, uncomplicated; R10.9 Unspecified abdominal pain; R11.2 Nausea with vomiting, unspecified; K59.00 Constipation, unspecified; K64.9 Unspecified hemorrhoids; J45.909 Unspecified asthma, uncomplicated; F17.200 Nicotine dependence, unspecified, uncomplicated; F31.9 Bipolar disorder, unspecified
CPT/HCPCS: 93005 ×2; 96375; 96376; 96361; 96374; 99285; 36415; 94640 ×2; 93306; 83880; 80061; 80053; 84443; 82550; 83735; 84484; 85025; 85610; 85730; 86140; 71046; G0378 ×2; J2060 ×2; J2405 ×2

== ENCOUNTER 2020-12-23 14:39 | Inpatient (IN) | payer OTHER ==
[2020-12-23] MEDS ORDERED: ACETAMINOPHEN TAB 500 MG TAB PO STA (14:50)
--- NOTE | 2020-12-23 14:54 | ED ---
General Adult HPI - General Stated complaint: N&V Time Seen by Provider: 12/23/20 14:41 - History of Present Illness Initial comments: Dictation was produced using [employer] dictation software. please excuse any grammatical, word or spelling errors. Chief Complaint: Patient is a 40-year-old male presents to the emergency department for constitutional symptoms History of Present Illness: Patient is a 32-year-old male who presents emergency department for constitutional symptoms. Patient states he woke up having symptoms of chills. Patient states that his grandfather had similar symptoms. States that he has some mild abdominal pain, diarrhea and nausea. Denies any shortness of breath. No burning on urination. No rash. Patient was recently admitted to [facility] where he was supposed to get a pacemaker for bradycardia but decided to leave AGAINST MEDICAL ADVICE. The ROS documented in this emergency department record has been reviewed and confirmed by me. Those systems with pertinent positive or negative responses have been documented in the HPI. All other systems are other negative and/or noncontributory. PHYSICAL EXAM: General Impression: Alert and oriented x3, not in acute distress HEENT: Normocephalic atraumatic, extra-ocular movements intact, pupils equal and reactive to light bilaterally, mucous membranes moist. Cardiovascular: Heart regular rate and rhythm Chest: Able to complete full sentences, no retractions, no tachypnea Abdomen: abdomen soft, non-tender, non-distended, no organomegaly Musculoskeletal: Pulses present and equal in all extremities, no peripheral edema Motor: no focal deficits noted Neurological: CN II-XII grossly intact, no focal motor or sensory deficits noted Skin: Intact with no visualized rashes Psych: Normal affect and mood ED course: 40 yo male presents for constitutional symptoms 1 day. Vital signs upon arrival shows heart rate of 39, worse vital signs within acceptable limits. Patient hooked up to the monitor and continues to have bradycardic rhythm is in the 30s. She is primary complaints constitutional symptoms. CBC, coag panel is unremarkable. Patient's magnesium 1.5. Elevated and chest x-ray are unremarkable. Patient reevaluated at bedside. Found to be stable medical condition. Patient is agreeable to admission for bradycardia. He states that instead of signing out AGAINST MEDICAL ADVICE he wants to follow through with the pacemaker placement. EKG interpretation: Ventricular rate 47, sinus bradycardia,. 122, QRS 92, QTc 438. No NE prolongation, no QTC prolongation, no ST or T-wave changes noted. EKG compared to 05/04/2020 showing no changes. Overall, this EKG is unremarkable - Related Data Home Medications Medication Instructions Recorded Confirmed No Known Home Medications 12/23/20 12/23/20 Allergies Allergy/AdvReac Type Severity Reaction Status Date / Time No Known Allergies Allergy Verified 12/23/20 16:08 Review of Systems ROS Statement: Those systems with pertinent positive or pertinent negative responses have been documented in the HPI. ROS Other: All systems not noted in ROS Statement are negative. Past Medical History Past Medical History: Asthma, Pneumonia Additional Past Medical History / Comment(s): Chronic dislocation/pain L sternoclavicular joint, chronic back pain. History of Any Multi-Drug Resistant Organisms: None Reported Past Surgical History: No Surgical Hx Reported Past Anesthesia/Blood Transfusion Reactions: Unable to Obtain Additional Past Anesthesia/Blood Transfusion Reaction / Comment(s): Pt states he has never had surgery. Past Psychological History: Bipolar Additional Psychological History / Comment(s): Pt resides with his mother Smoking Status: Current every day smoker Past Alcohol Use History: Occasional Additional Past Alcohol Use History / Comment(s): Pt started smoking in 1996 and is a ppd smoker. Past Drug Use History: Cocaine, Marijuana, Methamphetamine Additional Drug Use History / Comment(s): Pt states he uses marijuana, meth and cocaine occasionally. 05/03/20 UDS + for opiates, meth, cocain, marijuana - Past Family History Father Additional Family Medical History / Comment(s): ETOH abuse Mother History Unknown: Yes Additional Family Medical History / Comment(s): Pt does not know mother' medical history. Course Vital Signs 12/23/20 12/23/20 12/23/20 14:51 14:55 15:04 Temperature 97.9 F Pulse Rate 39 L 39 L Pulse Rate [ 36 L Visual Design Lead ] Respiratory 20 18 Rate Blood Pressure 170/122 146/65 O2 Sat by Pulse 99 100 Oximetry Medical Decision Making - Lab Data Result diagrams: 12/23/20 15:24 12/23/20 15:24 Lab Results 12/23/20 12/23/20 12/23/20 Range/Units 15:24 15:24 15:24 WBC 11.6 H (3.8-10.6) k/uL RBC 4.78 (4.30-5.90) m/uL Hgb 15.7 (13.0-17.5) gm/dL Hct 44.5 (39.0-53.0) % MCV 93.1 (80.0-100.0) fL MCH 32.7 (25.0-35.0) pg MCHC 35.2 (31.0-37.0) g/dL RDW 13.4 (11.5-15.5) % Plt Count 290 (150-450) k/uL MPV 7.6 Neutrophils % 80 % Lymphocytes % 15 % Monocytes % 3 % Eosinophils % 0 % Basophils % 0 % Neutrophils # 9.3 H (1.3-7.7) k/uL Lymphocytes # 1.8 (1.0-4.8) k/uL Monocytes # 0.4 (0-1.0) k/uL Eosinophils # 0.1 (0-0.7) k/uL Basophils # 0.0 (0-0.2) k/uL PT 11.7 (9.0-12.0) sec INR 1.1 (<1.2) APTT 22.1 (22.0-30.0) sec Sodium 142 (137-145) mmol/L Potassium 4.1 (3.5-5.1) mmol/L Chloride 111 H (98-107) mmol/L Carbon Dioxide 18 L (22-30) mmol/L Anion Gap 13 mmol/L BUN 22 H (9-20) mg/dL Creatinine 0.76 (0.66-1.25) mg/dL Est GFR (CKD-EPI)AfAm >90 (>60 ml/min/1.73 sqM) Est GFR (CKD-EPI)NonAf >90 (>60 ml/min/1.73 sqM) Glucose 151 H (74-99) mg/dL Calcium 10.7 H (8.4-10.2) mg/dL Ionized Calcium Lashanda 5.3 (4.5-5.3) mg/dL Magnesium 1.5 L (1.6-2.3) mg/dL Troponin I (0.000-0.034) ng/mL Coronavirus (PCR) (Not Detectd) 12/23/20 12/23/20 Range/Units 15:24 15:24 WBC (3.8-10.6) k/uL RBC (4.30-5.90) m/uL Hgb (13.0-17.5) gm/dL Hct (39.0-53.0) % MCV (80.0-100.0) fL MCH (25.0-35.0) pg MCHC (31.0-37.0) g/dL RDW (11.5-15.5) % Plt Count (150-450) k/uL MPV Neutrophils % % Lymphocytes % % Monocytes % % Eosinophils % % Basophils % % Neutrophils # (1.3-7.7) k/uL Lymphocytes # (1.0-4.8) k/uL Monocytes # (0-1.0) k/uL Eosinophils # (0-0.7) k/uL Basophils # (0-0.2) k/uL PT (9.0-12.0) sec INR (<1.2) APTT (22.0-30.0) sec Sodium (137-145) mmol/L Potassium (3.5-5.1) mmol/L Chloride (98-107) mmol/L Carbon Dioxide (22-30) mmol/L Anion Gap mmol/L BUN (9-20) mg/dL Creatinine (0.66-1.25) mg/dL Est GFR (CKD-EPI)AfAm (>60 ml/min/1.73 sqM) Est GFR (CKD-EPI)NonAf (>60 ml/min/1.73 sqM) Glucose (74-99) mg/dL Calcium (8.4-10.2) mg/dL Ionized Calcium Lashanda (4.5-5.3) mg/dL Magnesium (1.6-2.3) mg/dL Troponin I <0.012 (0.000-0.034) ng/mL Coronavirus (PCR) Not Detected (Not Detectd) Critical Care Time Critical Care Time: Yes Total Critical Care Time: 33 Disposition Clinical Impression: Bradycardia Disposition: ADMITTED IP TO THIS [facility] Condition: Fair Referrals: None,Stated [Primary Care Provider] - 1-2 days
[2020-12-23 15:39] LABS: Basophils % (A) 0 %; Eosinophils # (A) 0.1 k/uL (0-0.7); Eosinophils % (A) 0 %; HCT 44.5 % (39.0-53.0); HGB 15.7 gm/dL (13.0-17.5); Lymphocytes # (A) 1.8 k/uL (1.0-4.8); Lymphocytes % (A) 15 %; MCH 32.7 pg (25.0-35.0); MCHC 35.2 g/dL (31.0-37.0); MCV 93.1 fL (80.0-100.0); Mean Platelet Volume 7.6; Monocytes # (A) 0.4 k/uL (0-1.0); Monocytes % (A) 3 %; Neutrophils # (A) 9.3 k/uL (1.3-7.7); Neutrophils % (A) 80 %; Platelet Count 290 k/uL (150-450); RBC 4.78 m/uL (4.30-5.90); RDW 13.4 % (11.5-15.5); WBC 11.6 k/uL (3.8-10.6)
--- NOTE | 2020-12-23 15:39 | XR ---
EXAMINATION TYPE: XR chest 1V portable DATE OF EXAM: 12/23/2020 COMPARISON: Chest x-ray 05/04/2020 HISTORY: Chills TECHNIQUE: Single frontal view of the chest is obtained. FINDINGS: There is no focal air space opacity, pleural effusion, or pneumothorax seen. The cardiac silhouette size is within normal limits. There are overlying leads. The osseous structures are intac t. IMPRESSION: No acute process.
[2020-12-23 15:48] LABS: Ionized Calcium 5.3 mg/dL (4.5-5.3)
[2020-12-23 15:56] LABS: African American GFR (CKD) >90 (>60 ml/min/1.73 sqM); Anion Gap 13 mmol/L; Blood Urea Nitrogen 22 mg/dL (9-20); Calcium 10.7 mg/dL (8.4-10.2); Carbon Dioxide 18 mmol/L (22-30); Chloride 111 mmol/L (98-107); Glucose 151 mg/dL (74-99); Magnesium 1.5 mg/dL (1.6-2.3); Non-African American GFR(CKD) >90 (>60 ml/min/1.73 sqM); Potassium 4.1 mmol/L (3.5-5.1); Sodium 142 mmol/L (137-145)
[2020-12-23] MEDS ORDERED: ONDANSETRON ODT 4 MG TAB PO STA (15:56)
[2020-12-23 16:01] LABS: INR 1.1 (<1.2); Partial Thromboplastin Time 22.1 sec (22.0-30.0); Prothrombin Time 11.7 sec (9.0-12.0)
[2020-12-23] MEDS ORDERED: NALOXONE 0.4 MG/ML 1 ML VIAL IV PRN (16:24)
[2020-12-23] MEDS: MAGNESIUM SULFATE-D5W PMX 1 GM in DEXTROSE/WATER 1 100ML.BAG IVPB SCH ×2 (16:34→17:47)
[2020-12-23] MEDS ORDERED: METOCLOPRAMIDE 5 MG/ML 2 ML VIAL IVP STA (17:18)
[2020-12-23] MEDS: SODIUM CHLORIDE 0.9% 1,000 ML IV SCH ×2 (17:21→23:10)
[2020-12-23] MEDS ORDERED: LORazepam 2 MG/ML INJ IV STA (20:34)
[2020-12-23] MEDS ORDERED: IBUPROFEN 200 MG TAB PO PRN (20:36)
[2020-12-23] MEDS ORDERED: ONDANSETRON 4 MG/2 ML VIAL IVP PRN (20:36)
[2020-12-23] MEDS ORDERED: TEMAZEPAM 15 MG CAP PO PRN (20:40)
[2020-12-23 20:43] VITALS: RESP 16
[2020-12-23] MEDS ORDERED: PANTOPRAZOLE 40 MG/10 ML VIAL IVP SCH (21:00)
[2020-12-23] MEDS ORDERED: LORazepam 2 MG/ML INJ IV PRN (22:05)
[2020-12-23] MEDS ORDERED: HYDROcodone/APAP 5-325MG 1 EACH TAB PO PRN (22:05)
[2020-12-23] MEDS ORDERED: Potassium Replacement Protocol 1 EACH MISC MISCELLANE PRN (22:05)
[2020-12-23] MEDS ORDERED: LORazepam 1 MG TAB PO PRN (22:05)
[2020-12-23] MEDS ORDERED: Magnesium Replacement Protocol 1 EACH MISC MISCELLANE PRN (22:05)
--- NOTE | 2020-12-23 22:56 | P.HPIM ---
History of Present Illness H&P Date: 12/23/20 Chief Complaint: Symptomatic bradycardia 40-year-old male with significant history Patient comes in with a diagnosis of symptomatic bradycardia he's been suffering this for a few months now. With sporadic episodes of getting dizzy lightheaded eating hot flashes and nauseated it's precipitated by nonspecific factor can happen during activity or rest. He doesn't recall any recent upper respiratory infection. He reports that his twin brother of heart disease he thinks it's related to rhythm abnormality is not sure of the type. He was evaluated by cardiology as an outpatient and recommendations were made to have a pacemaker inserted. He has recently left AGAINST MEDICAL ADVICE from [facility] while waiting to get evaluated for pacemaker insertion is not clearing his report at one point she reports that it was in the past few days and other times he mentioned to the nurse that it might have happened about a month ago patient is not clearing his reports. He is currently feeling fine denies any complaints of chest pain or trouble breathing denies any dizziness or lightheadedness is laying comfortable in bed denies any fevers or chills nausea or vomiting denies any GI bleeding Workup in the ED EKG showed sinus bradycardia, magnesium is low at 1.5 lactic acidosis of 3 initial troponins were negative Review of Systems Pertinent positives as noted in HPI. All other systems were reviewed and are negative Past Medical History Past Medical History: Asthma, Pneumonia Additional Past Medical History / Comment(s): Chronic dislocation/pain L sternoclavicular joint, chronic back pain. History of Any Multi-Drug Resistant Organisms: None Reported Past Surgical History: No Surgical Hx Reported Past Anesthesia/Blood Transfusion Reactions: Unable to Obtain Additional Past Anesthesia/Blood Transfusion Reaction / Comment(s): Pt states he has never had surgery. Smoking Status: Current every day smoker - Past Family History Father Additional Family Medical History / Comment(s): ETOH abuse Mother History Unknown: Yes Additional Family Medical History / Comment(s): Pt does not know mother' medical history. Medications and Allergies Home Medications Medication Instructions Recorded Confirmed Type No Known Home Medications 12/23/20 12/23/20 History Allergies Allergy/AdvReac Type Severity Reaction Status Date / Time No Known Allergies Allergy Verified 12/23/20 16:08 Physical Exam Vitals: Vital Signs Temp Pulse Pulse Resp BP Pulse Ox 12/23/20 19:45 44 L 24 131/76 100 06/25/21 19:27 48 L 20 95 12/23/20 19:00 62 16 142/72 98 12/23/20 17:00 97.8 F 49 L 20 143/92 99 12/23/20 16:30 98.2 F 37 L 18 154/82 99 12/23/20 16:00 98.5 F 34 L 18 140/71 99 12/23/20 15:30 36 L 18 131/71 99 12/23/20 15:04 36 L 12/23/20 14:55 39 L 18 146/65 100 12/23/20 14:51 97.9 F 39 L 20 170/122 99 Intake and Output 12/23/20 12/23/20 12/23/20 06:59 14:59 22:59 Other: Weight 63.503 kg 63.503 kg Constitutional: No acute distress, conversant, pleasant Eyes: Anicteric sclerae, moist conjunctiva, Pupils equal round reactive to light ENMT: NC/AT Oropharynx clear, no erythema, or exudates Neck: Supple, FROM, no masses, or JVD No carotid bruits No thyromegaly Lungs: Clear to auscultation Clear to percussion Normal respiratory effort, no accessory muscle use Cardiovascular: Heart regular in rate and rhythm, No murmurs, gallops, or rubs No peripheral edema Abdominal: Soft Nontender, no guarding, rebound or rigidity Abdomen moving with respiration Normoactive bowel sounds No hepatomegaly, No splenomegaly No palpable mass No abdominal wall hernia noted Skin: Normal temperature, tone, texture, turgor No induration No subcutaneous nodules No rash, lesions No ulcers Multiple tattoos Extremities: No digital cyanosis No clubbing Pedal pulses intact and symmetrical Radial pulses intact and symmetrical No calf tenderness Psychiatric: Alert and oriented to person, place and time Appropriate affect fair judgement Neuro Muscles Strength 5/5 in all 4 extremities Sensation to light touch grossly present throughout Cranial nerves II-XII grossly intact No focal sensory deficits Lymphatics: no palpable cervical or supraclavicular , or inguinal lymph nodes Results CBC & Chem 7: 12/23/20 15:24 12/23/20 15:24 Labs: Abnormal Lab Results - Last 24 Hours (Table) 12/23/20 12/23/20 12/23/20 Range/Units 15:24 15:24 15:24 WBC 11.6 H (3.8-10.6) k/uL Neutrophils # 9.3 H (1.3-7.7) k/uL Chloride 111 H (98-107) mmol/L Carbon Dioxide 18 L (22-30) mmol/L BUN 22 H (9-20) mg/dL Glucose 151 H (74-99) mg/dL Plasma Lactic Acid Alexei 2.2 H* (0.7-2.0) mmol/L Calcium 10.7 H (8.4-10.2) mg/dL Magnesium 1.5 L (1.6-2.3) mg/dL 12/23/20 Range/Units 19:27 WBC (3.8-10.6) k/uL Neutrophils # (1.3-7.7) k/uL Chloride (98-107) mmol/L Carbon Dioxide (22-30) mmol/L BUN (9-20) mg/dL Glucose (74-99) mg/dL Plasma Lactic Acid Alexei 3.0 H* (0.7-2.0) mmol/L Calcium (8.4-10.2) mg/dL Magnesium (1.6-2.3) mg/dL Assessment and Plan Assessment: Sinus bradycardia symptomatic Hypomagnesemia Lactic acidosis Plan EKG showing sinus bradycardia Cardiac monitoring Atropine when necessary Cardiology evaluation Nothing by mouth after midnight Trend troponins Replace electrolytes IV fluid hydration Follow-up labs CODE STATUS full code DVT prophylaxis heparin subcu 3 times a day Discussed with patient ER and RN Anticipated length of stay less than [address] to home A total of 75 minutes was spent on the care of this complex patient more than 50% of the time was spent in counseling and care coordination.
[2020-12-23 23:17] LABS: Appearance,Urine Clear (Clear); Bilirubin,Urine Negative (Negative); Blood,Urine Trace (Negative); Color,Urine Yellow; Glucose,Urine (UA) Negative (Negative); Ketones,Urine Trace (Negative); Leukocyte Esterase,Urine Negative (Negative); Mucus,Urine Rare /hpf; Nitrite,Urine Negative (Negative); PH, Urine 5.5 (5.0-8.0); Protein,Urine Trace (Negative); RBC,Urine <1 /hpf (0-5); Specific Gravity,Urine 1.033 (1.001-1.035); Urobilinogen,Urine <2.0 mg/dL (<2.0); WBC,Urine 3 /hpf (0-5)
[2020-12-23 23:27] LABS: Amphetamine Screen,Urine Not Detected (NotDetected); Barbiturate Screen,Urine Not Detected (NotDetected); Benzodiazepines Screen,Urine Detected (NotDetected); Cocaine Screen,Urine Not Detected (NotDetected); Methadone Screen, Urine Not Detected (NotDetected); Opiate Screen,Urine Detected (NotDetected); Oxycodone Screen, Urine Not Detected (NotDetected); Phencyclidine Screen,Urine Not Detected (NotDetected); Tricyclic Antidepressant,Urine Not Detected (NotDetected); Urn Cannabinoid Scrn Detected (NotDetected)
[2020-12-23 23:56] VITALS: BP 145/70; TEMP 98.3
[2020-12-24] MEDS ORDERED: HEPARIN SODIUM,PORCINE/PF 5,000 UNIT/0.5 ML SYRINGE SQ SCH
[2020-12-24 04:04] VITALS: PULSE 55
[2020-12-24 07:19] LABS: Basophils % (A) 0 %; Eosinophils % (A) 0 %; HCT 41.9 % (39.0-53.0); HGB 14.5 gm/dL (13.0-17.5); Lymphocytes # (A) 2.8 k/uL (1.0-4.8); Lymphocytes % (A) 22 %; MCH 32.6 pg (25.0-35.0); MCHC 34.7 g/dL (31.0-37.0); Mean Platelet Volume 7.1; Monocytes # (A) 0.9 k/uL (0-1.0); Monocytes % (A) 7 %; Neutrophils # (A) 8.8 k/uL (1.3-7.7); Neutrophils % (A) 69 %; Platelet Count 294 k/uL (150-450); RBC 4.45 m/uL (4.30-5.90); RDW 13.6 % (11.5-15.5); WBC 12.7 k/uL (3.8-10.6)
[2020-12-24 07:26] LABS: African American GFR (CKD) >90 (>60 ml/min/1.73 sqM); Anion Gap 7 mmol/L; Blood Urea Nitrogen 17 mg/dL (9-20); Calcium 9.6 mg/dL (8.4-10.2); Carbon Dioxide 24 mmol/L (22-30); Chloride 109 mmol/L (98-107); Glucose 116 mg/dL (74-99); Magnesium 2.1 mg/dL (1.6-2.3); Non-African American GFR(CKD) >90 (>60 ml/min/1.73 sqM); Potassium 4.2 mmol/L (3.5-5.1); Sodium 140 mmol/L (137-145)
[2020-12-24] MEDS ORDERED: PANTOPRAZOLE 40 MG TABLET PO SCH (07:30)
--- NOTE | 2020-12-24 09:09 | HP ---
HISTORY AND PHYSICAL CHIEF COMPLAINTS: Nausea, vomiting, and bradycardia, and weakness. 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 Now presenting. The patient recently admitted to [facility] with complaints of nausea, vomiting, bradycardia and apparently pacemaker implant was initially considered but the patient left the hospital against medical advice. Currently the patient is complaining of nausea and some vomiting and patient was complaining of weakness. The patient was found to have sinus bradycardia. The patient admitted for evaluation and treatment. EKG showed, which I personally reviewed by me, showed sinus bradycardia with some PACs with a heart rate of 147. There is no history of fever or weakness, no headache, loss of consciousness, seizures. PAST MEDICAL: Asthma, pneumonia, history of chronic constipation, history of bipolar. MEDICATIONS: Admission home medications are none. ALLERGIES: None. FAMILY HISTORY: History of EtOH abuse in the family. SOCIAL HISTORY: History of THC smoking, remote history of substance abuse. REVIEW OF SYSTEMS: ENT No history of diminished hearing or vision. CARDIOVASCULAR No angina or palpitations. RESPIRATORY No cough, no hemoptysis. GI No nausea, vomiting, or diarrhea. No dysuria or hematuria. NERVOUS No numbness or weakness. ALLERGY/IMMUNOLOGY As mentioned earlier. MUSCULOSKELETAL As mentioned earlier. HEMATOLOGY/ONCOLOGY Negative. ENDOCRINE No history of diabetes or hypothyroidism. CONSTITUTIONAL As mentioned earlier. DERMATOLOGY Negative. RHEUMATOLOGY Negative, PSYCHIATRY As mentioned earlier. PHYSICAL EXAMINATION: The pulse is 44, blood pressure 130/70, respiration 20, temperature 98.2, pulse ox 100% on room air. HEENT: Conjunctivae normal. Oral mucosa moist. NECK: No jugular venous distention. No lymph node enlargement. CARDIOVASCULAR: S1, S2, muffled. No S3, no S4. Bradycardiac. RESPIRATORY: Diminished breath sounds at the bases. No rhonchi, no crackles. ABDOMEN: Soft, nontender. No mass palpable. LEGS: No edema, no swelling. NERVOUS SYSTEM: Higher functions mentioned earlier. Moves all four limbs. No focal motor or sensory deficits. LYMPHATICS: No lymph node in neck or axilla. SKIN: No rash. JOINTS: No active deforming arthropathy. LABS: WBC 7.2, hemoglobin 15.7 sodium 140, potassium 4.1. Otherwise, BUN is 22. Lactic acid 2.2 and 3, calcium is 10.7. ASSESSMENT: 1. Severe bradycardia with nausea, vomiting for evaluation. 2. Increased WBC. 3. Elevated lactic acid of undetermined etiology possibly secondary dehydration. 4. Hypomagnesemia. 5. Nausea with possible acute gastritis. 6. History of asthma. 7. History of pneumonia. 8. History of chronic dislocation pain of the left sternoclavicular joint. 9. History of bipolar. 10.History of nicotine dependence. 11.Remote history of cocaine and methamphetamine. 12.FULL CODE. RECOMMENDATIONS: This is a 40-year-old gentleman who presented with multiple complex medical issues, we will monitor the patient closely, continue the current management and treatment. Otherwise, at this time I recommend cardiology consultation. Continue with remote telemetry. Consider the possibility of pacemaker. Obtain old records at [facility]. A 2D echo with Doppler if it was not done previously. Prognosis guarded because of multiple complex medical conditions. MMODL / IJN: [id number] /
--- NOTE | 2020-12-24 09:20 | P.DS ---
Providers Date of admission: 12/23/20 16:25 Expected date of discharge: 12/24/20 Attending physician: Mary Cee MD Consults: 12/23/20 16:24 Consult Physician Routine Consulting Provider: Dayna Cox Consult Reason/Comments: bradycardia Do you want consulting provider notified?: Yes Primary care physician: Stated None Hospital Course: 40-year-old male with significant history Patient comes in with a diagnosis of symptomatic bradycardia he's been suffering this for a few months now. With sporadic episodes of getting dizzy lightheaded eating hot flashes and nauseated it's precipitated by nonspecific factor can happen during activity or rest. He doesn't recall any recent upper respiratory infection. He reports that his twin brother of heart disease he thinks it's related to rhythm abnormality is not sure of the type. He was evaluated by cardiology as an outpatient and recommendations were made to have a pacemaker inserted. He has recently left AGAINST MEDICAL ADVICE from [facility] while waiting to get evaluated for pacemaker insertion is not clearing his report at one point she reports that it was in the past few days and other times he mentioned to the nurse that it might have happened about a month ago patient is not clearing his reports. He is currently feeling fine denies any complaints of chest pain or trouble breathing denies any dizziness or lightheadedness is laying comfortable in bed denies any fevers or chills nausea or vomiting denies any GI bleeding Workup in the ED EKG showed sinus bradycardia, magnesium is low at 1.5 lactic acidosis of 3 initial troponins were negative Sinus bradycardia symptomatic Hypomagnesemia Lactic acidosis Patient was admitted to telemetry, which demonstrated sinus bradycardia. Cardiology evaluated the patient, determine no pacemaker necessary at this time, however, recommended observation. Patient, however, did not want to be hospitalized any further, therefore decided to leave AGAINST MEDICAL ADVICE. He reported that he would arrange his own follow-up. At the time of discharge, patient was alert and oriented, with full capacity, and was advised on the risks of leaving AGAINST MEDICAL ADVICE, including decompensation and debility as well as mortality. Patient Condition at Discharge: Good Plan - Discharge Summary Discharge Rx Participant: Yes New Discharge Prescriptions: No Action No Known Home Medications Discharge Medication List No Known Home Medications 12/23/20 [History] Follow up Appointment(s)/Referral(s): None,Stated [Primary Care Provider] - 1-2 days Discharge Disposition: Left Against Medical Advice
--- NOTE | 2020-12-24 10:22 | CONS ---
CONSULTATION REASON FOR CONSULTATION: Asymptomatic bradycardia. HISTORY: I was asked to see this patient because of a slow heart rate. EKG revealed a sinus bradycardia at a rate of about 45 beats per minute with some blocked PACs. This gentleman was seen by me before in May of last year. At that time echo was unremarkable. His bradycardia was at rest with activity. His heart rate normalized. Even here while I was examining him heart rate is in the 60s and he is in sinus rhythm. He is comfortable resting, wishes to go home, does not want to give me much history. He was also in [facility] in the past apparently and had some testing as well. At the time of my evaluation, he wishes to go home. Denies any chest discomfort, palpitations, dizziness or lightheadedness. PAST MEDICAL HISTORY: Remarkable for bronchial asthma, drug abuse including marijuana and smoking. MEDICATIONS: No known medications. ALLERGIES: None. PHYSICAL EXAMINATION: On examination, blood pressure is 140/70, pulse rate is about 68 on my examination. HEENT unremarkable. Fundus not examined by me. Neck is supple. No JVD. I do not hear a carotid bruit. There is no thyromegaly heart exam reveals S1, S2 heard normally. No rub, murmur or gallop lungs are clear. Abdomen is soft, nontender. Lower extremities reveal normal pulses. No edema. Central nervous system is normal him. IMPRESSION: 1. Asymptomatic bradycardia, does not require any intervention. 2. Drug abuse. RECOMMENDATIONS: No further workup necessary from a cardiac standpoint. Patient can be discharged. Advised to refrain from alcohol, caffeine and tobacco and also marijuana. We will see the patient as needed. MMODL / IJN: [id number] /
== END 2020-12-24 08:34 | disposition left against medical advice (07) | DRG 309 ==
LOC: EC 14:39 → 3SCARD 16:25
PROVIDERS: ADMIT Internal Medicine; ATTEND Internal Medicine
DX: R00.1 Bradycardia, unspecified (principal); E87.2 Acidosis; F31.9 Bipolar disorder, unspecified; J45.909 Unspecified asthma, uncomplicated; Z20.822 Contact with and (suspected) exposure to COVID-19; E86.0 Dehydration; E83.42 Hypomagnesemia; G89.29 Other chronic pain; M54.9 Dorsalgia, unspecified; Z53.29 Procedure and treatment not carried out because of patient's decision for other reasons; F17.210 Nicotine dependence, cigarettes, uncomplicated; Z71.6 Tobacco abuse counseling; Z87.01 Personal history of pneumonia (recurrent); Z87.19 Personal history of other diseases of the digestive system; Z87.39 Personal history of other diseases of the musculoskeletal system and connective tissue; Z82.49 Family history of ischemic heart disease and other diseases of the circulatory system
CPT/HCPCS: 36415; 71045; 80048; 80306; 81001; 82330; 83605; 83735; 84443; 84484; 85025; 85610; 85730; 87040; 87635; 93005; 99291

== ENCOUNTER 2022-11-24 00:17 | Emergency (ER) | payer OTHER ==
[2022-11-24 00:31] VITALS: TEMP 97.7
[2022-11-24 00:59] LABS: Basophils % (A) 0 %; Eosinophils # (A) 0.1 k/uL (0-0.7); Eosinophils % (A) 1 %; HCT 45.5 % (39.0-53.0); HGB 15.2 gm/dL (13.0-17.5); Lymphocytes # (A) 2.6 k/uL (1.0-4.8); Lymphocytes % (A) 31 %; MCH 32.2 pg (25.0-35.0); MCHC 33.4 g/dL (31.0-37.0); MCV 96.5 fL (80.0-100.0); Mean Platelet Volume 7.3; Monocytes # (A) 0.5 k/uL (0-1.0); Monocytes % (A) 6 %; Neutrophils # (A) 5.1 k/uL (1.3-7.7); Neutrophils % (A) 61 %; Platelet Count 273 k/uL (150-450); RBC 4.72 m/uL (4.30-5.90); RDW 13.1 % (11.5-15.5); WBC 8.5 k/uL (3.8-10.6)
[2022-11-24 01:10] LABS: ALT 27 U/L (4-49); AST 52 U/L (17-59); African American GFR (CKD) >90 (>60 ml/min/1.73 sqM); Albumin 4.7 g/dL (3.5-5.0); Alkaline Phosphatase 74 U/L (38-126); Anion Gap 16 mmol/L; Blood Urea Nitrogen 15 mg/dL (9-20); Calcium 9.5 mg/dL (8.4-10.2); Carbon Dioxide 22 mmol/L (22-30); Chloride 104 mmol/L (98-107); Glucose 94 mg/dL (74-99); INR 1.1 (<1.2); Non-African American GFR(CKD) >90 (>60 ml/min/1.73 sqM); Partial Thromboplastin Time 22.4 sec (22.0-30.0); Potassium 3.3 mmol/L (3.5-5.1); Prothrombin Time 11.6 sec (9.0-12.0); Sodium 142 mmol/L (137-145); Total Bilirubin 0.8 mg/dL (0.2-1.3); Total Protein 7.7 g/dL (6.3-8.2)
--- NOTE | 2022-11-24 01:15 | ED ---
General Adult HPI - General Chief complaint: Shortness of Breath Stated complaint: nausea, vomiting, shortness of breath Time Seen by Provider: 11/24/22 00:18 Source: patient, EMS, RN notes reviewed, old records reviewed Mode of arrival: EMS Limitations: no limitations - History of Present Illness Initial comments: 42-year-old male presents for evaluation of nausea vomiting, chest discomfort, dyspnea. Patient's symptoms have been ongoing for the past several days he does admit to both alcohol and methamphetamine use. Patient was seen at outside [facility] and had left AGAINST MEDICAL ADVICE. He is uncertain if he was admitted or seen in the emergency department. He denies cough. Denies fever. Denies chest pain at the time my evaluation. He complains of nausea vomiting and admits to consuming alcohol prior to arrival. - Related Data Previous Rx's Medication Instructions Recorded Albuterol Inhaler [Ventolin Hfa 1 - 2 puff INHALATION Q4HR PRN #1 11/24/22 Inhaler] each predniSONE 50 mg PO DAILY #5 tab 11/24/22 Allergies Allergy/AdvReac Type Severity Reaction Status Date / Time No Known Allergies Allergy Verified 12/23/20 16:08 Review of Systems ROS Statement: Those systems with pertinent positive or pertinent negative responses have been documented in the HPI. ROS Other: All systems not noted in ROS Statement are negative. Past Medical History Past Medical History: Asthma, Pneumonia Additional Past Medical History / Comment(s): Chronic dislocation/pain L sternoclavicular joint, chronic back pain. History of Any Multi-Drug Resistant Organisms: None Reported Past Surgical History: No Surgical Hx Reported Past Anesthesia/Blood Transfusion Reactions: Unable to Obtain Additional Past Anesthesia/Blood Transfusion Reaction / Comment(s): Pt states he has never had surgery. Past Psychological History: Bipolar Smoking Status: Current every day smoker Past Alcohol Use History: Abuse Past Drug Use History: IV Drug Use, Marijuana, Methamphetamine - Past Family History Father Additional Family Medical History / Comment(s): ETOH abuse Mother History Unknown: Yes Additional Family Medical History / Comment(s): Pt does not know mother' medical history. General Exam Limitations: no limitations General appearance: alert, in no apparent distress Head exam: Present: atraumatic, normocephalic Eye exam: Present: normal appearance, PERRL ENT exam: Present: normal exam Neck exam: Present: normal inspection. Absent: tenderness, meningismus Respiratory exam: Present: wheezes (Slight expiratory wheeze). Absent: respiratory distress Cardiovascular Exam: Present: normal rhythm, bradycardia GI/Abdominal exam: Present: soft. Absent: distended, tenderness, guarding, rebound Extremities exam: Present: normal inspection, normal capillary refill. Absent: pedal edema Neurological exam: Present: alert, oriented X3, CN II-XII intact. Absent: motor sensory deficit Psychiatric exam: Present: normal affect, normal mood Skin exam: Present: warm, dry, intact. Absent: cyanosis, diaphoretic Course Vital Signs 11/24/22 11/24/22 00:26 02:41 Temperature 97.7 F Pulse Rate 48 L 56 L Respiratory 20 20 Rate Blood Pressure 161/89 158/90 O2 Sat by Pulse 99 99 Oximetry Medical Decision Making - Medical Decision Making Was pt. sent in by a medical professional or institution (, PA, [employer]LECTION CLERK, urgent care, hospital, or skilled nursing...) When possible be specific @ -No Did you speak to anyone other than the patient for history (EMS, parent, family, police, friend...)? What history was obtained from this source @ -No Did you review nursing and triage notes (agree or disagree)? Why? @ -I reviewed and agree with nursing and triage notes Were old charts reviewed (outside hosp., previous admission, EMS record, old EKG, old radiological studies, urgent care reports/EKG's, skilled nursing records)? Report findings @ -No old charts were reviewed Differential Diagnosis (chest pain, altered mental status, abdominal pain women, abdominal pain men, vaginal bleeding, weakness, fever, dyspnea, syncope, headache, dizziness, GI bleed, back pain, seizure, CVA, palpatations, mental he alth, musculoskeletal)? @ Differential Dyspnea: Coronary syndrome, arrhythmia, tamponade, asthma, COPD, pulmonary embolism, pneumonia, pneumothorax, pulmonary effusion, anaphylaxis, diabetic ketoacidosis, flailed chest, pulmonary contusion, diaphragmatic rupture, anemia, neuromus cular, this is not meant to be an all-inclusive list. ] EKG interpreted by me (3pts min.). @ EKG: Sinus bradycardia rate of 45, NJ interval 143, QRS duration 102, QTC [address] segment elevation. X-rays interpreted by me (1pt min.). @ -Negative for acute cardiopulmonary findings, interpreted as interstitial prominence by radiologist. CT interpreted by me (1pt min.). @ -None done U/S interpreted by me (1pt. min.). @ -None done What testing was considered but not performed or refused? (CT, X-rays, U/S, labs)? Why? @ -None What meds were considered but not given or refused? Why? @ -None Did you discuss the management of the patient with other professionals (professionals i.e. , PA, [employer]LECTION CLERK, lab, RT, psych nurse, social work lecturer, attorney lawyer, teacher, loan service officer, dependency case manager)? Give summary @ -No Was smoking cessation discussed for >3mins.? @ -No Was critical care preformed (if so, how long)? @ -No Were there social determinants of health that impacted care today? How? (Homelessness, low income, unemployed, alcoholism, drug addiction, transportation, low edu. Level, literacy, decrease access to med. care, skilled nursing, rehab)? @ -No Was there de-escalation of care discussed even if they declined (Discuss DNR or withdrawal of care, Hospice)? DNR status @ -No What co-morbidities impacted this encounter? (DM, HTN, Smoking, COPD, CAD, Cancer, CVA, ARF, Chemo, Hep., AIDS, mental health diagnosis, sleep apnea, morbid obesity)? @Polysubstance abuse Was patient admitted / discharged? Hospital course, mention meds given and rou te, prescriptions, significant lab abnormalities, going to OR and other pertinent info. @42-year-old male with multiple complaints including nausea, dyspnea, and not feeling well after using both alcohol and amphetamines. Patient is hypertensive likely secondary to amphetamine use. He has a normal CBC, normal CMP, negative troponin. Patient feeling better at the time of reevaluation. He has no hypoxia he is not tachypneic. He is bradycardic which is sinus bradycardia. Th e bradycardia is not new. Patient does have a slight expiratory wheeze. Given albuterol and short course of steroids. Undiagnosed new problem with uncertain prognosis? @ -No Drug Therapy requiring intensive monitoring for toxicity (Heparin, Nitro, Insulin, Cardizem)? @ -No Were any procedures done? @ -No Diagnosis/symptom? @ -Nausea vomiting, EtOH use, amphetamine abuse, bronchospasm Acute, or Chronic, or Acute on Chronic? @ -Chronic Uncomplicated (without systemic symptoms) or Complicated (systemic symptoms)? @ -default Side effects of treatment? @ -No Exacerbation, Progression, or Severe Exacerbation? @ -No Poses a threat to life or bodily function? How? (Chest pain, USA, CT, pneumonia, PE, COPD, DKA, ARF, appy, cholecystitis, CVA, Diverticulitis, Homicidal, Suici katia, threat to staff... and all critical care pts) @ Yes, drugs of abuse - Lab Data Result diagrams: 11/24/22 00:50 11/24/22 00:50 Lab Results 11/24/22 11/24/22 11/24/22 Range/Units 00:50 00:50 00:50 WBC 8.5 (3.8-10.6) k/uL RBC 4.72 (4.30-5.90) m/uL Hgb 15.2 (13.0-17.5) gm/dL Hct 45.5 (39.0-53.0) % MCV 96.5 (80.0-100.0) fL MCH 32.2 (25.0-35.0) pg MCHC 33.4 (31.0-37.0) g/dL RDW 13.1 (11.5-15.5) % Plt Count 273 (150-450) k/uL MPV 7.3 Neutrophils % 61 % Lymphocytes % 31 % Monocytes % 6 % Eosinophils % 1 % Basophils % 0 % Neutrophils # 5.1 (1.3-7.7) k/uL Lymphocytes # 2.6 (1.0-4.8) k/uL Monocytes # 0.5 (0-1.0) k/uL Eosinophils # 0.1 (0-0.7) k/uL Basophils # 0.0 (0-0.2) k/uL PT 11.6 (9.0-12.0) sec INR 1.1 (<1.2) APTT 22.4 (22.0-30.0) sec Sodium 142 (137-145) mmol/L Potassium 3.3 L (3.5-5.1) mmol/L Chloride 104 (98-107) mmol/L Carbon Dioxide 22 (22-30) mmol/L Anion Gap 16 mmol/L BUN 15 (9-20) mg/dL Creatinine 0.85 (0.66-1.25) mg/dL Est GFR (CKD-EPI)AfAm >90 (>60 ml/min/1.73 sqM) Est GFR (CKD-EPI)NonAf >90 (>60 ml/min/1.73 sqM) Glucose 94 (74-99) mg/dL Calcium 9.5 (8.4-10.2) mg/dL Magnesium 2.0 (1.6-2.3) mg/dL Total Bilirubin 0.8 (0.2-1.3) mg/dL AST 52 (17-59) U/L ALT 27 (4-49) U/L Alkaline Phosphatase 74 (38-126) U/L Troponin I (0.000-0.034) ng/mL Total Protein 7.7 (6.3-8.2) g/dL Albumin 4.7 (3.5-5.0) g/dL Urine Color Urine Appearance (Clear) Urine pH (5.0-8.0) Ur Specific [place] (1.001-1.035) Urine Protein (Negative) Urine Glucose (UA) (Negative) Urine Ketones (Negative) Urine Blood (Negative) Urine Nitrite (Negative) Urine Bilirubin (Negative) Urine Urobilinogen (<2.0) mg/dL Ur Leukocyte Esterase (Negative) Urine Opiates Screen (NotDetected) Ur Oxycodone Screen (NotDetected) Urine Methadone Screen (NotDetected) Ur Propoxyphene Screen (NotDetected) Ur Barbiturates Screen (NotDetected) U Tricyclic Antidepress (NotDetected) Ur Phencyclidine Scrn (NotDetected) Ur Amphetamines Screen (NotDetected) U Methamphetamines Scrn (NotDetected) U Benzodiazepines Scrn (NotDetected) Urine Cocaine Screen (NotDetected) U Marijuana (THC) Screen (NotDetected) 11/24/22 11/24/22 Range/Units 00:50 02:30 WBC (3.8-10.6) k/uL RBC (4.30-5.90) m/uL Hgb (13.0-17.5) gm/dL Hct (39.0-53.0) % MCV (80.0-100.0) fL MCH (25.0-35.0) pg MCHC (31.0-37.0) g/dL RDW (11.5-15.5) % Plt Count (150-450) k/uL MPV Neutrophils % % Lymphocytes % % Monocytes % % Eosinophils % % Basophils % % Neutrophils # (1.3-7.7) k/uL Lymphocytes # (1.0-4.8) k/uL Monocytes # (0-1.0) k/uL Eosinophils # (0-0.7) k/uL Basophils # (0-0.2) k/uL PT (9.0-12.0) sec INR (<1.2) APTT (22.0-30.0) sec Sodium (137-145) mmol/L Potassium (3.5-5.1) mmol/L Chloride (98-107) mmol/L Carbon Dioxide (22-30) mmol/L Anion Gap mmol/L BUN (9-20) mg/dL Creatinine (0.66-1.25) mg/dL Est GFR (CKD-EPI)AfAm (>60 ml/min/1.73 sqM) Est GFR (CKD-EPI)NonAf (>60 ml/min/1.73 sqM) Glucose (74-99) mg/dL Calcium (8.4-10.2) mg/dL Magnesium (1.6-2.3) mg/dL Total Bilirubin (0.2-1.3) mg/dL AST (17-59) U/L ALT (4-49) U/L Alkaline Phosphatase (38-126) U/L Troponin I <0.012 (0.000-0.034) ng/mL Total Protein (6.3-8.2) g/dL Albumin (3.5-5.0) g/dL Urine Color Yellow Urine Appearance Clear (Clear) Urine pH 6.0 (5.0-8.0) Ur Specific [place] 1.017 (1.001-1.035) Urine Protein Negative (Negative) Urine Glucose (UA) Negative (Negative) Urine Ketones Trace H (Negative) Urine Blood Negative (Negative) Urine Nitrite Negative (Negative) Urine Bilirubin Negative (Negative) Urine Urobilinogen <2.0 (<2.0) mg/dL Ur Leukocyte Esterase Negative (Negative) Urine Opiates Screen Detected H (NotDetected) Ur Oxycodone Screen Detected H (NotDetected) Urine Methadone Screen Not Detected (NotDetected) Ur Propoxyphene Screen Not Detected (NotDetected) Ur Barbiturates Screen Not Detected (NotDetected) U Tricyclic Antidepress Not Detected (NotDetected) Ur Phencyclidine Scrn Not Detected (NotDetected) Ur Amphetamines Screen Detected H (NotDetected) U Methamphetamines Scrn Detected H (NotDetected) U Benzodiazepines Scrn Not Detected (NotDetected) Urine Cocaine Screen Not Detected (NotDetected) U Marijuana (THC) Screen Detected H (NotDetected) Disposition Clinical Impression: Polysubstance abuse, Bradycardia, Bronchitis Disposition: HOME SELF-CARE Condition: Fair Instructions (If sedation given, give patient instructions): Methamphetamine Abuse (ED), Bradycardia (ED), Acute Bronchitis (ED) Prescriptions: predniSONE 50 mg PO DAILY #5 tab Albuterol Inhaler [Ventolin Hfa Inhaler] 1 - 2 puff INHALATION Q4HR PRN #1 each PRN Reason: Shortness Of Breath Is patient prescribed a controlled substance at d/c from ED?: No Referrals: None,Stated [Primary Care Provider] - 1-2 days Eliel Flores MD [STAFF PHYSICIAN] - 1-2 days Time of Disposition: 04:49
--- NOTE | 2022-11-24 01:50 | XR ---
EXAM: XR Chest, 2 Views CLINICAL HISTORY: ITS.REASON XR Reason: difficulty breathing TECHNIQUE: Frontal and lateral views of the chest. COMPARISON: No relevant prior studies available. FINDINGS: Lungs: No consolidation or mass. Slightly prominent interstitial markings. Pleural space: No effusion. Heart: No cardiomegaly. Bones/joints: No acute findings. IMPRESSION: Slightly prominent interstitial markings.
[2022-11-24 02:40] LABS: Appearance,Urine Clear (Clear); Bilirubin,Urine Negative (Negative); Blood,Urine Negative (Negative); Color,Urine Yellow; Glucose,Urine (UA) Negative (Negative); Ketones,Urine Trace (Negative); Leukocyte Esterase,Urine Negative (Negative); Nitrite,Urine Negative (Negative); Protein,Urine Negative (Negative); Specific Gravity,Urine 1.017 (1.001-1.035); Urobilinogen,Urine <2.0 mg/dL (<2.0)
[2022-11-24 02:48] LABS: Urn Cannabinoid Scrn Detected (NotDetected)
[2022-11-24 02:49] LABS: Amphetamine Screen,Urine Detected (NotDetected); Barbiturate Screen,Urine Not Detected (NotDetected); Benzodiazepines Screen,Urine Not Detected (NotDetected); Cocaine Screen,Urine Not Detected (NotDetected); Methadone Screen, Urine Not Detected (NotDetected); Opiate Screen,Urine Detected (NotDetected); Oxycodone Screen, Urine Detected (NotDetected); Phencyclidine Screen,Urine Not Detected (NotDetected); Tricyclic Antidepressant,Urine Not Detected (NotDetected)
[2022-11-24] MEDS ORDERED: KETOROLAC 15 MG/ML 1 ML VIAL IVP STA (03:07)
[2022-11-24 04:58] VITALS: BP 142/80; PULSE 48; RESP 18
== END 2022-11-24 05:09 | disposition home or self-care (01) ==
LOC: EC 00:17
DX: F19.10 Other psychoactive substance abuse, uncomplicated (principal); J40 Bronchitis, not specified as acute or chronic; R00.1 Bradycardia, unspecified; F17.200 Nicotine dependence, unspecified, uncomplicated; F12.90 Cannabis use, unspecified, uncomplicated; Z86.59 Personal history of other mental and behavioral disorders
CPT/HCPCS: 36415; 80053; 83735; 84484; 85025; 85610; 85730; 81003; 80306; 71046; 99285; 96374; J1885

== ENCOUNTER 2024-11-16 09:03 | Emergency (ER) | payer OTHER ==
[2024-11-16 09:28] VITALS: BP 129/79; PULSE 68; RESP 18; TEMP 98.1
--- NOTE | 2024-11-16 09:47 | ED ---
General Adult HPI - General Chief complaint: Chest Pain Stated complaint: back pain Time Seen by Provider: 11/16/24 09:30 Source: patient Mode of arrival: ambulatory Limitations: no limitations - History of Present Illness Initial comments: Dictation was produced using [employer] dictation software. please excuse any grammatical, word or spelling errors. Chief Complaint: 44-year-old male with sharp chest pain History of Present Illness:-year-old male presents the emergency department sharp chest pain states it is to his left anterior chest radiates to the back. States that it is not pressure-like and sharp in nature. When he coughs. No fever chills or night sweats. Denies any sputum production. No history of coronary artery disease. The ROS documented in this emergency department record has been reviewed and confirmed by me. Those systems with pertinent positive or negative responses have been documented in the HPI. All other systems are other negative and/or noncontributory. - Related Data Previous Rx's Medication Instructions Recorded Albuterol Inhaler [Ventolin Hfa 1 - 2 puff INHALATION Q4HR PRN #1 11/24/22 Inhaler] each predniSONE 50 mg PO DAILY #5 tab 11/24/22 HYDROcodone/APAP 5-325MG [[place] 1 tab PO Q6HR PRN 3 Days #12 tab 11/16/24 5-325] Allergies Allergy/AdvReac Type Severity Reaction Status Date / Time No Known Allergies Allergy Verified 11/16/24 09:28 Review of Systems ROS Statement: Those systems with pertinent positive or pertinent negative responses have been documented in the HPI. ROS Other: All systems not noted in ROS Statement are negative. Past Medical History Past Medical History: Asthma, Pneumonia Additional Past Medical History / Comment(s): Chronic dislocation/pain L sternoclavicular joint, chronic back pain. History of Any Multi-Drug Resistant Organisms: None Reported Past Surgical History: No Surgical Hx Reported Past Anesthesia/Blood Transfusion Reactions: Unable to Obtain Additional Past Anesthesia/Blood Transfusion Reaction / Comment(s): Pt states he has never had surgery. Past Psychological History: Bipolar Smoking Status: Current every day smoker Past Alcohol Use History: Abuse Past Drug Use History: IV Drug Use, Marijuana, Methamphetamine - Past Family History Father Additional Family Medical History / Comment(s): ETOH abuse Mother History Unknown: Yes Additional Family Medical History / Comment(s): Pt does not know mother' medical history. General Exam - General Exam Comments Initial Comments: PHYSICAL EXAM: General Impression: Alert and oriented x3, not in acute distress HEENT: Normocephalic atraumatic, extra-ocular movements intact, pupils equal and reactive to light bilaterally, mucous membranes moist. Cardiovascular: Heart regular rate and rhythm Chest: Able to complete full sentences, no retractions, no tachypnea Abdomen: abdomen soft, non-tender, non-distended, no organomegaly Musculoskeletal: Pulses present and equal in all extremities, no peripheral edema Motor: no focal deficits noted Neurological: CN II-XII grossly intact, no focal motor or sensory deficits noted Skin: Intact with no visualized rashes Psych: Normal affect and mood Limitations: no limitations Course Vital Signs 11/16/24 09:24 Temperature 98.1 F Pulse Rate 68 Respiratory 18 Rate Blood Pressure 129/79 O2 Sat by Pulse 98 Oximetry Medical Decision Making - Medical Decision Making Was pt. sent in by a medical professional or institution (, PA, INORGANIC CHEMISTRY TEACHER, urgent care, hospital, or [facility]...) When possible be specific @ -No Did you speak to anyone other than the patient for history (EMS, parent, family, police, friend...)? What history was obtained from this source @ -No Did you review nursing and triage notes (agree or disagree)? Why? @ -I reviewed and agree with nursing and triage notes Were old charts reviewed (outside hosp., previous admission, EMS record, old EKG, old radiological studies, urgent care reports/EKG's, [facility] records)? Report findings @ -No old charts were reviewed Differential Diagnosis (chest pain, altered mental status, abdominal pain women, abdominal pain men, vaginal bleeding, musculoskeletal, weakness, fever, dyspnea, syncope, headache, dizziness, GI bleed, back pain, seizure, CVA, palpatations, mental health)? @ -Differential Chest Pain: Stable Angina, Unstable Angina, STEMI, NSTEMI Aortic Dissection, Pneumothorax, Musculoskeletal, Esophageal Spasm GERD, Cholecystitis, Pancreatitis, Zoster, this is not meant to be an all-inclusive list. EKG interpreted by me (3pts min.). @ -My EKG interpretation: Ventricular rate 55, sinus bradycardia, W[place] interval 144, QRS 106, QTc 362. No [place] prolongation, no QTC prolongation, no ST or T-wave changes noted. EKG compared to default value showing no changes. Overall, this EKG is unremarkable X-rays interpreted by me (1pt min.). @ -Chest x-ray is nonacute CT interpreted by me (1pt min.). @ -None done U/S interpreted by me (1pt. min.). @ -None done What testing was considered but not performed or refused? (CT, X-rays, U/S, labs)? Why? @ -None What meds were considered but not given or refused? Why? @ -None Was smoking cessation discussed for >3mins.? @ -No Were there social determinants of health that impacted care today? How? (Homelessness, low income, unemployed, alcoholism, drug addiction, transportation, low edu. Level, literacy, decrease access to med. care, longterm, rehab)? @ -No Was there de-escalation of care discussed even if they declined (Discuss DNR or withdrawal of care, Hospice)? DNR status @ -No What co-morbidities impacted this encounter? (DM, HTN, Smoking, COPD, CAD, Can cer, CVA, ARF, Chemo, Hep., AIDS, mental health diagnosis, sleep apnea, morbid obesity)? @ -None Was patient admitted / discharged? Hospital course, mention meds given and route, prescriptions, significant lab abnormalities, going to OR and other pertinent info. @ -44-year-old male with chest drain. Vital signs stable. Physical examination is benign. EKG and x-ray unremarkable. Patient given prescription discharge. Did you discuss the management of the patient with other professionals (professionals i.e. , PA, INORGANIC CHEMISTRY TEACHER, lab, RT, psych nurse, social work assistant, warehouse trainer, teacher, network security officer, assistant case manager)? Give summary @ -No Was critical care preformed (if so, how long)? @ -No Undiagnosed new problem with uncertain prognosis? @ -No Drug Therapy requiring intensive monitoring for toxicity (Heparin, Nitro, Insulin, Cardizem)? @ -No Were any procedures done? @ -No Diagnosis/symptom? Acute, or Chronic, or Acute on Chronic? Uncomplicated (without systemic symptoms) or Complicated (systemic symptoms)? @ -Chest strain Side effects of treatment? @ -No Exacerbation, Progression, or Severe Exacerbation? @ -No Poses a threat to life or bodily function? How? (Chest pain, [place], [place], pneumonia, PE, COPD, DKA, ARF, appy, cholecystitis, CVA, Diverticulitis, Homicidal, Suicidal, threat to staff... and all critical care pts) @ -No Disposition Clinical Impression: Chest wall muscle strain Disposition: HOME SELF-CARE Condition: Good Instructions (If sedation given, give patient instructions): Chest Pain (ED) Prescriptions: HYDROcodone/APAP 5-325MG [[place] 5-325] 1 tab PO Q6HR PRN 3 Days #12 tab PRN Reason: Severe Pain Is patient prescribed a controlled substance at d/c from ED?: Yes Referrals: Eliel Flores MD [Primary Care Provider] - 1-2 days Time of Disposition: 10:03
--- NOTE | 2024-11-16 09:48 | XR ---
EXAMINATION TYPE: XR chest 2V DATE OF EXAM: 11/16/2024 9:42 AM COMPARISON: 11/24/2022 CLINICAL INDICATION: Male, 44 years old with history of chest pain, , TECHNIQUE: PA and lateral views FINDINGS: The cardiomediastinal silhouette, aorta, and pulmonary vasculature are within normal limits. Mild ele tral peribronchial cuffing. Lungs and pleural spaces are clear. IMPRESSION: Some central peribronchial cuffing could reflect bronchitis or asthma. Otherwise, no acute cardiopulm onary process. [facility], Workstation: [facility], 11/16/2024 9:46 AM
== END 2024-11-16 10:27 | disposition home or self-care (01) ==
LOC: EC 09:03
DX: S29.011A Strain of muscle and tendon of front wall of thorax, initial encounter (principal); F17.200 Nicotine dependence, unspecified, uncomplicated; X58.XXXA Exposure to other specified factors, initial encounter
CPT/HCPCS: 71046; 93005; 99285

== ENCOUNTER 2024-12-14 09:07 | Emergency (ER) | payer OTHER ==
[2024-12-14 09:11] VITALS: TEMP 97.6
--- NOTE | 2024-12-14 09:50 | ED ---
General Adult HPI - General Chief complaint: Recheck/Abnormal Lab/Rx Stated complaint: Neck and back pain, BROOKS Time Seen by Provider: 12/14/24 09:10 Source: patient, RN notes reviewed, old records reviewed Mode of arrival: ambulatory Limitations: no limitations - History of Present Illness Initial comments: This is a 44-year-old male who presents to the emergency department stating about 2 months ago he hurt his back at work and it is on both sides next to his spinal column but not in the center. Patient states he works at a [employer] and he is doing quite a bit of lifting at all times. Patient also states he does not have an inhaler for his asthma but he does continue to smoke. Patient states a few months ago when he came to the emergency department they gave him some narcotics and it seemed to help and then the pain went away and then it is back now so he came back into the emergency department. Patient has not followed up with the back doctor like he was told he has not followed up with his primary care doctor like he was told. - Related Data Previous Rx's Medication Instructions Recorded Albuterol Inhaler [Ventolin Hfa 1 - 2 puff INHALATION Q4HR PRN #1 11/24/22 Inhaler] each predniSONE 50 mg PO DAILY #5 tab 11/24/22 HYDROcodone/APAP 5-325MG [[place] 1 tab PO Q6HR PRN 3 Days #12 tab 11/16/24 5-325] Albuterol Inhaler [Ventolin Hfa 1 - 2 puff INHALATION Q6HR PRN #2 12/14/24 Inhaler] each Cyclobenzaprine [Flexeril] 10 mg PO TID #20 tab 12/14/24 Ketorolac [Toradol] 10 mg PO Q8HR #15 tab 12/14/24 Allergies Allergy/AdvReac Type Severity Reaction Status Date / Time No Known Allergies Allergy Verified 12/14/24 09:11 Review of Systems ROS Statement: Those systems with pertinent positive or pertinent negative responses have been documented in the HPI. ROS Other: All systems not noted in ROS Statement are negative. Past Medical History Past Medical History: Asthma, Pneumonia Additional Past Medical History / Comment(s): Chronic dislocation/pain L sternoclavicular joint, chronic back pain. History of Any Multi-Drug Resistant Organisms: None Reported Past Surgical History: No Surgical Hx Reported Past Anesthesia/Blood Transfusion Reactions: Unable to Obtain Additional Past Anesthesia/Blood Transfusion Reaction / Comment(s): Pt states he has never had surgery. Past Psychological History: Bipolar Smoking Status: Current every day smoker Past Alcohol Use History: Abuse Past Drug Use History: IV Drug Use, Marijuana, Methamphetamine - Past Family History Father Additional Family Medical History / Comment(s): ETOH abuse Mother History Unknown: Yes Additional Family Medical History / Comment(s): Pt does not know mother' medical history. General Exam - General Exam Comments Initial Comments: GENERAL: Patient is well-developed and well-nourished. Patient is nontoxic and well- hydrated and is in moderate distress. ENT: Neck is soft and supple. No significant lymphadenopathy is noted. Oropharynx is clear. Moist mucous membranes. Neck has full range of motion without eliciting any pain. EYES: The sclera were anicteric and conjunctiva were pink and moist. Extraocular movements were intact and pupils were equal round and reactive to light. Eyelids were unremarkable. PULMONARY: Unlabored respirations. Good breath sounds bilaterally. No audible rales rhonchi or wheezing was noted. CARDIOVASCULAR: Patient is a regular rate and rhythm no murmurs are heard ABDOMEN: Soft and nontender with normal bowel sounds. SKIN: Skin is clear with no lesions or rashes and otherwise unremarkable. NEUROLOGIC: Patient is alert and oriented x3. Cranial nerves II through XII are grossly intact. Motor and sensory are also intact. Normal speech, volume and content. Symmetrical smile. MUSCULOSKELETAL: Patient has mid thoracic paraspinous muscle tenderness bilaterally LYMPHATICS: No significant lymphadenopathy is noted PSYCHIATRIC: Normal psychiatric evaluation. Limitations: no limitations Course Vital Signs 12/14/24 09:08 Temperature 97.6 F Pulse Rate 74 Respiratory 18 Rate Blood Pressure 144/90 O2 Sat by Pulse 100 Oximetry Medical Decision Making - Medical Decision Making EKG is interpreted by myself but EKG shows sinus rhythm at 60 bpm VT 140 QRS 94 QT interval 369 QTc is 369. Patient's EKG shows no ST segment elevation. Was pt. sent in by a medical professional or institution (, PA, VETERINARY X RAY OPERATOR, urgent care, hospital, or snf...) When possible be specific @ -No Did you speak to anyone other than the patient for history (EMS, parent, family, police, friend...)? What history was obtained from this source @ -No Did you review nursing and triage notes (agree or disagree)? Why? @ -I reviewed and agree with nursing and triage notes Were old charts reviewed (outside hosp., previous admission, EMS record, old EKG, old radiological studies, urgent care reports/EKG's, snf records)? Report findings @ -No old charts were reviewed Differential Diagnosis? @ -Differential Back Pain: Strain, zoster, cauda equina syndrome, epidural abscess, vertebral osteomyelitis, discitis, fracture, subluxation, disc herniation, DJD, spinal stenosis, dissection, AAA, pancreatitis, peptic ulcer disease, pyelonephritis, kidney stone, this is not meant to be an all-inclusive list. EKG interpreted by me (3pts min.). @ -As above X-rays interpreted by me (1pt min.). @ -None done CT interpreted by me (1pt min.). @ -None done U/S interpreted by me (1pt. min.). @ -None done What testing was considered but not performed or refused? (CT, X-rays, U/S, labs)? Why? @ -None What meds were considered but not given or refused? Why? @ -None Did you discuss the management of the patient with other professionals (professionals i.e. , PA, VETERINARY X RAY OPERATOR, lab, RT, psych nurse, professor of social work, cardiac technologist, teacher, interface control officer, bilingual patient support caseworker)? Give summary @ -She is not right Was smoking cessation discussed for >3mins.? @ -No Was critical care preformed (if so, how long)? @ -No Were there social determinants of health that impacted care today? How? (Homelessness, low income, unemployed, alcoholism, drug addiction, transportation, low edu. Level, literacy, decrease access to med. care, custodial, rehab)? @ -No Was there de-escalation of care discussed even if they declined (Discuss DNR or withdrawal of care, Hospice)? DNR status @ -No What co-morbidities impacted this encounter? (DM, HTN, Smoking, COPD, CAD, Cancer, CVA, ARF, Chemo, Hep., AIDS, mental health diagnosis, sleep apnea, morbid obesity)? @ -None Was patient admitted / discharged? Hospital course, mention meds given and route, prescriptions, significant lab abnormalities, going to OR and other pertinent info. @ -Flexeril and Toradol in the emergency department. Patient we discharged home with the same. Patient will also be given an albuterol inhaler Undiagnosed new problem with uncertain prognosis? @ -No Drug Therapy requiring intensive monitoring for toxicity (Heparin, Nitro, Insulin, Cardizem)? @ -No Were any procedures done? @ -No Diagnosis/symptom? @ -Musculoskeletal back pain Acute, or Chronic, or Acute on Chronic? @ -Acute Uncomplicated (without systemic symptoms) or Complicated (systemic symptoms)? @ -Uncomplicated Side effects of treatment? @ -No Exacerbation, Progression, or Severe Exacerbation? @ -No Poses a threat to life or bodily function? How? (Chest pain, [place], [place], pneumonia, PE, COPD, DKA, ARF, appy, cholecystitis, CVA, Diverticulitis, Homicidal, Jammie cidal, threat to staff... and all critical care pts) @ -No Disposition Clinical Impression: Musculoskeletal back pain, History of asthma Disposition: HOME SELF-CARE Condition: Good Instructions (If sedation given, give patient instructions): Back Pain (ED) Prescriptions: Cyclobenzaprine [Flexeril] 10 mg PO TID #20 tab Ketorolac [Toradol] 10 mg PO Q8HR #15 tab Albuterol Inhaler [Ventolin Hfa Inhaler] 1 - 2 puff INHALATION Q6HR PRN #2 each PRN Reason: Difficulty breathing Is patient prescribed a controlled substance at d/c from ED?: No Referrals: Eliel Flores MD [Primary Care Provider] - 1-2 days Time of Disposition: 09:52
[2024-12-14] MEDS: CYCLOBENZAPRINE 10 MG TAB PO STA (10:02)
[2024-12-14] MEDS: KETOROLAC 15 MG/ML 1 ML VIAL IM STA (10:02)
[2024-12-14 10:20] VITALS: BP 134/100; PULSE 83; RESP 19
== END 2024-12-14 10:20 | disposition home or self-care (01) ==
LOC: EC 09:07
DX: M54.9 Dorsalgia, unspecified (principal); J45.909 Unspecified asthma, uncomplicated; F17.200 Nicotine dependence, unspecified, uncomplicated
CPT/HCPCS: 36415; 93005; 99283